=== PATIENT | male | born 1940 | race Caucasian/White ===

== ENCOUNTER 2016-12-02 13:08 | Inpatient (IN) | payer MEDICARE ==
[~2016-12-02 13:08] MED LIST: ASPI81 PO; TAB-TAB PO
[2016-12-02] MEDS ORDERED: SODIUM CHLORIDE 0.9% FLUSH 10 ML FLUSH IV FLUSH PRN (15:00)
[2016-12-02] MEDS ORDERED: MAGNESIUM HYDROXIDE SUSP 30 ML CUP PO PRN (15:00)
[2016-12-02] MEDS ORDERED: ONDANSETRON HCL 4 MG/2 ML VIAL IVP PRN (15:00)
[2016-12-02] MEDS ORDERED: TEMAZEPAM 15 MG CAP PO PRN (15:00)
[2016-12-02] MEDS ORDERED: NALOXONE HCL 0.4 MG/ML AMP IV PUSH PRN (15:00)
[2016-12-02] MEDS ORDERED: ACETAMINOPHEN 325 MG TAB PO PRN (15:00)
[2016-12-02 15:41] VITALS: BP 115/73; PULSE 112; RESP 16; TEMP 99.1; O2SAT 96
[2016-12-02 16:05] LABS: AUTOMATED NEUTROPHIL # 15.5 TH/MM3 (1.8-7.7); EOSINOPHIL % 0.2 % (0.0-4.0); HEMATOCRIT 35.6 % (39.0-51.0); LYMPH % 4.3 % (9.0-44.0); LYMPHOCYTE # 0.7 TH/MM3 (1.0-4.8); MEAN CELL VOLUME 100.3 FL (80.0-100.0); MEAN CORPUSCULAR HEMOGLOBIN 32.6 PG (27.0-34.0); MEAN CORPUSCULAR HGB CONC 32.5 % (32.0-36.0); MONO % 5.7 % (0.0-8.0); NEUT % 89.8 % (16.0-70.0); PLATELET COUNT 132 TH/MM3 (150-450); RED BLOOD COUNT 3.55 MIL/MM3 (4.50-5.90); RED CELL DISTRIBUTION WIDTH 18.6 % (11.6-17.2); WHITE BLOOD COUNT 17.2 TH/MM3 (4.0-11.0)
[2016-12-02 16:06] LABS: HEMO FLAGS AUTO DIFF
[2016-12-02] MEDS ORDERED: LATA.005%O EACH EYE (16:12)
[2016-12-02] MEDS ORDERED: DORZ2SOL7 EACH EYE (16:12)
[2016-12-02] MEDS ORDERED: ZOFR8TAB PO (16:12)
[2016-12-02] MEDS: SODIUM CHLOR 0.9% 1000 ML INJ 1,000 ML IV SCH ×2 (16:14→21:43)
[2016-12-02 16:27] LABS: ALKALINE PHOSPHATASE 111 U/L (45-117); ALT (GPT) 15 U/L (12-78); ANION GAP 6 MEQ/L (5-15); AST (GOT) 16 U/L (15-37); BICARBONATE 28.7 MEQ/L (21.0-32.0); BLOOD UREA NITROGEN 10 MG/DL (7-18); CHLORIDE 103 MEQ/L (98-107); GLOMERULAR FILTRATION RATE 129 ML/MIN (>89); SODIUM (NA) 138 MEQ/L (136-145); TOTAL BILIRUBIN ADULT 0.6 MG/DL (0.2-1.0)
[2016-12-02 16:29] LABS: POTASSIUM 2.8 MEQ/L (3.5-5.1)
[2016-12-02] MEDS: POTASSIUM CHLOR 40 MEQ PREMIX 100 ML IV SCH ×2 (17:02→21:41)
[2016-12-02 17:08] LABS: BANDS 21 % (0-6); EOSINOPHILS 1 % (0-4); NEUTROPHIL # MANUAL DIFF 14.8 TH/MM3 (1.8-7.7); POLYS (SEG NEUTROPHILS) 65 % (16-70); WBC DIFF SAMPLE 100
[2016-12-02 17:11] LABS: DOHLE BODIES PRESENT (NONE SEEN); PLATELET ESTIMATE SMEAR LOW (NORMAL); PLATELET MORPHOLOGY NORMAL (NORMAL); SCAN/DIFF FINAL DIFF MANUAL
[2016-12-02 18:27] LABS: BLOOD, URINE NEG (NEG); COMMENT (UR) CULT NOT INDICATED; CULTURE IF INDICATED CULT NOT INDICATED; GLUCOSE,URINE NEG (NEG); KETONE, URINE NEG (NEG); NITRITE,URINE NEG (NEG); URINE COLOR YELLOW (YELLW/STRAW)
--- NOTE | 2016-12-02 19:06 | MH ---
cc: JIM URBANO M.D. DATE OF ADMISSION 12/02/2016 ADMISSION DIAGNOSIS Dehydration, nausea, rectal cancer. HISTORY OF PRESENT ILLNESS This 76-year-old white male well-known to the undersigned physician was diagnosed with a rectal cancer and a cancer within the right ascending colon. The patient is currently undergoing chemotherapy at the [facility] for the cancer prior to radiation therapy and ultimately surgery. The patient last received chemotherapy 7 days prior to admission. Normally he would have a few days of diarrhea and after the chemotherapy, however, he has had persistent diarrhea and a markedly decreased appetite. The patient has consistently lost weight since his diagnosis in September 2016. However, over the last several days he has been unable to take in any solids as he is nauseated by any food at all. He has been able to drink some liquids but he has been taking in very little. His urine output has decreased. On the day of admission his contacted the undersigned physician and reported the patient was so weak that he could not get up out of bed. He was complaining of diffuse musculoskeletal discomfort. He had no actual emesis. He has had frequent watery diarrhea without any blood or mucus. The patient did take some Lomotil earlier today which has slowed down the diarrhea but he still having loose stools. He has had no definite fever or chills. He has an Likqha-I-Pymk in the right subclavian area but denies any pain associated with it. He has had no cough, sputum production, upper respiratory infection symptoms. He denies any gastroesophageal reflux disease symptoms. He has had a large amount of flatus. He has had lower abdominal cramping pain on and off. He denies any muscle cramps, any open sores or lesions. He denies any specific inflamed joints. PAST MEDICAL HISTORY Significant for: 1. Bilateral cataracts for which he underwent cataract removal with lens implants. 2. He has glaucoma. 3. Hemorrhoids. 4. He has a history of kidney stones. He has a large right kidney stone which is nonobstructive. He passed a kidney stone within the last 6 weeks from the left kidney. He has had no further pain. 5. He has osteoarthritis. 6. He has the above-mentioned rectal cancer. 7. He is status post an appendectomy at age 12. 8. He had retinal surgery for detached retina approximately 20 years ago. 9. He is status post tonsillectomy. 10. He had an Erhrze-Z-Vtbw placed earlier this year at the [facility]. 11. He has had the rectal biopsy in August 2016. Subsequently underwent the removal of the ascending colon mass at the [facility] by colonoscopy. MEDICATIONS The current medications are: 1. Tramadol 50 mg 1 tablet every 6 hours as needed for pain. 2. Xalatan eye drops 0.005% 1 drop in the affected eye in the evening. 3. Cosopt 22.3 / 6.8 mg per ml one drop in each eye twice daily. 4. He is taking Xeloda 500 milligrams two tablets twice a day. ALLERGIES HE HAS ALLERGIES TO MORPHINE WHICH CAUSED NAUSEA. FAMILY HISTORY Positive for father who in his 80s from myocardial infarction. Mother is in her 90s and she had cataracts, hemorrhoids, hypertension and a gastric ulcer. SOCIAL HISTORY He is . He is an admitted attorneys. He does not smoke. He lives with his . He consumes alcohol on a social basis. REVIEW OF SYSTEMS review of symptoms see history of present illness. PHYSICAL EXAMINATION VITAL SIGNS: Upon arrival to the hospital the patient's blood pressure was 115/73 with a heart rate 112, respirations 16, temperature 99.1 degrees Fahrenheit, oxygen saturation on room air is 96%. GENERAL: In general this is a thin elderly white male lying in bed appearing fatigued but in no respiratory distress. HEENT: The pupils are equal, round, reactive to light. Extraocular movements are intact. Sclerae anicteric. Conjunctive were pink. Bilateral lens implants in place. Mouth and throat reveal dry mucous membranes. No erythema, exudates. NECK: Supple without lymphadenopathy, JVD, bruits or thyromegaly. CARDIOVASCULAR: Regular rate and rhythm with sinus arrhythmia and frequent ectopy. the rate is tachycardic. LUNGS: Clear to auscultation without wheezes, rhonchi or rales. ABDOMEN: Soft with very active bowel sounds. No localized tenderness. No guarding or rebound. No masses. No HSM. No CVAT. GENITOURINARY: Deferred. RECTAL: Deferred. EXTREMITIES: Lower extremities reveal no appreciable edema. No calf tenderness. No Homans' sign. 2+ distal pulses. SKIN: Reveals some mild pallor but turgor is adequate. NEUROLOGIC: Examination is nonfocal. LABORATORY DATA The patient's comprehensive metabolic profile was significant for a potassium of 2.8. His calcium was 8.4 but this was not protein corrected. Total protein 5.6 with albumin 2.7. White blood cell count 17.2, hemoglobin 11.6, hematocrit 35.6, platelet count was the 132,000. MCV elevated at 100.3 White blood count differential showed 89.8 polys and 4.3 lymphocytes, 5.7 monocytes. Urinalysis is pending at this time. IMAGING Chest x-ray is pending at this time. IMPRESSION AND PLAN 1. This 76-year-old white male undergoing chemotherapy for colon cancer and rectal cancer has had progressive nausea with diminished appetite and persistent diarrhea. He has become extremely weak. He will be placed on observation .he will be given IV fluids for volume resuscitation. I have provided him with IV Zofran as needed. The patient states that the persistence of diarrhea is unusual with his present elevated white blood cell count and mild temperature elevation, I am concerned about possibility of an occult infection. I am going to proceed to follow up with the chest x-ray and urinalysis I have ordered a blood culture be performed from his Wrahxa-V-Itlg. His port site does not reveal any evidence of any infection. We will check stool studies for C difficile as well as for typical enteric pathogens. I have consulted Dr. Lemons who has seen the patient recently and will discuss further treatment options with him. We will hold the patient's oral chemotherapy today until I can discuss it better with Dr. Lemons. 2. Hypokalemia. The patient is receiving an IV supplement potassium. Will repeat potassium level in the morning and provide additional supplements as needed. In light of the hypokalemia we will place the patient on a cardiac nurse specialist. His heart rate is elevated but I suspect this is due to the dehydration. I have ordered a 12-lead EKG be done now to evaluate for the possibility of any other arrhythmia. 3. Glaucoma. The patient will continue with usual eye drops. 4. I have discussed the patient's condition with both he and his who is at the bedside. Both expressed understanding and agreement. MD FREDRICK Mederos/LAVELL /6:12 PM /6:28 PM
--- NOTE | 2016-12-02 19:26 | RADRPT ---
EXAM DATE/TIME: 12/02/2016 19:07 [place] COMPARISON: No previous studies available for comparison. INDICATIONS : Leukocytosis. Short of breath. MEDICAL HISTORY : Carcinoma, rectal. SURGICAL HISTORY : Infusaport. ENCOUNTER: Initial ACUITY: 1 day PAIN SCORE: 0/10 LOCATION: Bilateral chest FINDINGS: A single view of the chest demonstrates the lungs to be symmetrically aerated without evidence of mas s, infiltrate or effusion. The cardiomediastinal contours are unremarkable. Osseous structures are intact. There is a right internal jugular Dywrki-y-Eocs catheter with tip at atriocaval junction. CONCLUSION: No evidence of acute cardiopulmonary disease. Saad Haskins MD on December 02, 2016 at 19:24 Board Certified Radiologist. This report was verified electronically.
[2016-12-02 20:00] VITALS: BP 142/79; PULSE 86; RESP 17; TEMP 98.7; O2SAT 99
[2016-12-02] MEDS: SODIUM CHLORIDE 0.9% FLUSH 10 ML FLUSH IV FLUSH SCH (21:00)
[2016-12-02] MEDS: LATANOPROST 0.005% OPHT SOLN 2.5 ML BTL EACH EYE SCH (21:42)
[2016-12-02] MEDS: DORZOLAMIDE/TIMOLOL OPTH SOLN 10 ML BTL EACH EYE SCH (21:42)
[2016-12-02 22:06] VITALS: PULSE 76
--- NOTE | 2016-12-02 22:26 | MB ---
cc: LELAND ACUÑA DATE OF CONSULTATION 12/02/2016 REASON FOR CONSULTATION Adenocarcinoma of the rectum, colonic cancer, with abdominal pain, diarrhea and cramps on chemotherapy. PATIENT PROFILE The patient is a 76-year-old male who is . He was born in [place], [place]. He lives in [place] but also has a home in [place]. He has two children, both daughters. One lives in [place] and the other in [place]. 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 In the past he would have one drink per day but has had no alcohol recently. He stopped smoking 60 years ago and had smoked only for 2 years. HISTORY OF PRESENT ILLNESS The patient is a 76-year-old male with a longstanding history of rectal bleeding initially due to hemorrhoids. He recently developed increasing blood per rectum. He saw his primary care physician. He had a CT scan of the abdomen and pelvis which I believe was performed on 07/17/2016 and showed thickening of the distal rectum over 6 [address] He had a [address] scan of the thorax on 08/06/2016 without contrast showing no evidence of any metastatic disease. On 08/14/2016 he had a colonoscopy performed by Dr. Bautista. 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 In addition he had a large polyp in the ascending colon with focal high-grade dysplasia and at least intra mucosal adenocarcinoma. He had an MRI of the pelvis done locally showing thickening over a distance of 7 cm in the rectum. He was clinically felt to have T3 N0 M0 rectal cancer at that time. He had several local opinions. He then went to the [facility] and saw Dr. Aguilar who is a surgeon. He had a repeat MRI done at the [facility] and was felt to have a clinical T3 N1 M0 rectal cancer. In addition a repeat colonoscopy was done and he had a 7 cm mass in the ascending colon which was removed with mucosal resection and contained invasive adenocarcinoma. It is not clear to me what the clinical stage of the ascending colon cancer was. At that point he was evaluated at the [facility] for definitive treatment. The decision was made to treat him with oxaliplatin dose of 130 mg per meter squared day one, repeated every 21 days and capecitabine 1500 mg p.o. b.i.d. for 14 of 21 days. He would receive four months of neoadjuvant treatment. He would then go on to receive radiation therapy with I believe Xeloda and following this surgical resection of both cancers, specifically the rectal cancer and adenocarcinoma of the ascending colon. A week ago he received his third cycle of oxaliplatin and began Xeloda. He was also given Neulasta. During the past several days he developed abdominal pain, diarrhea, cramps and dehydration. He is now hospitalized for the above reason. LABORATORY DATA Laboratory studies include a CMP notable for potassium 2.8, BUN is 6, creatinine is 0.6, albumin is 2.7. Hemoglobin 11.6, white count 17,000, platelets 132,000. Total neutrophils are 14,000 but it must be remembered that he did receive Neulasta a week ago. He has had some slight puffiness of the fingertips. PAST SURGICAL HISTORY 1. Appendectomy. 2. Cataract surgery. 3. Retinal surgery for retinal detachment. 4. Tonsillectomy. 5. Sqqxcq-K-Eptg placement. 6. Colonoscopy locally by Dr. Bautista and repeat colonoscopy at the [facility] as described above. PAST MEDICAL HISTORY 1. Cataracts. 2. Glaucoma. 3. Hemorrhoids. 4. Right kidney stone and left renal stone causing colic. 5. Current diagnosis of adenocarcinoma of the rectum, clinical stage T3 N1 M0 and adenocarcinoma of the ascending colon clinical stage not clear. MEDICATIONS PRIOR TO ADMISSION 1. Aspirin 81 mg a day. 2. Timolol eye drops. 3. Xalatan eye drops. 4. Multivitamin. 5. Zofran. ALLERGIES ? MORPHINE DERIVATIVES. FAMILY HISTORY Mother age 93 of old age. Father age 85 of heart disease. REVIEW OF SYSTEMS Notable for abdominal pain, diarrhea, cramps, fatigue, weight loss, diminished appetite and some puffiness and slight tenderness of the fingertips. PHYSICAL EXAMINATION GENERAL: Physical examination reveals a slender gentleman. He is not acutely ill. VITAL SIGNS: Blood pressure 115/70, respiratory rate 16, pulse 110, temperature 99, O2 sat 96%. HEENT: Head is normocephalic. Sclerae and conjunctivae are normal. Oropharynx unremarkable. LYMPHATICS: There is no cervical, supraclavicular, axillary or inguinal adenopathy. HEART: Regular rhythm. LUNGS: Clear. ABDOMEN: Soft. No hepatosplenomegaly or masses. Bowel sounds slightly increased. EXTREMITIES: No edema. puffiness and edema of finger tips. MUSCULOSKELETAL: No bone pain. NEUROLOGIC: No weakness. SKIN: Examination of the skin there is some puffiness of the fingertips from the Xeloda with mild edema. RECTAL: slight watery stool. No tenderness. The rectal mass can be felt but it occupies only 20% of the circumferential volume of the lower rectum. ASSESSMENT The patient is a 76-year-old male. He has an adenocarcinoma of the rectum clinical stage T3 N1 M0. He has an adenocarcinoma of the ascending colon. It is not clear to me the stage. He received one week ago chemotherapy which includes Xeloda. I believe the Xeloda is responsible for the diarrhea and for the mild puffiness of the fingertips. RECOMMENDATIONS 1. IV fluids and correct potassium. 2. Holds Xeloda until he is better. 3. He can continue to receive chemotherapy but will require a dose reduction of the Xeloda. 4. In order to coordinate his care I contacted his medical oncologist, Dr. Vinicius Cameron at the [facility] and reviewed the situation with him. The patient wants to complete his chemotherapy locally and this will be done. I also contacted Dr. Rober Avila by phone this evening to coordinate care. Everything seems to be in order and the patient will receive IV fluids and his stool will be tested for C-difficile. I am hoping that in several days he will be able to return home. The plan will be to complete the chemotherapy administered over 3-4 months and then go on with radiation to the rectal lesion with concomitant Xeloda and then surgery. I have asked the patient to follow up with his surgeon at the [facility]. MD NERI Tavera/LAVELL /8:08 PM /9:58 PM LISA
[2016-12-03] VITALS: BP 107/67; PULSE 67; RESP 17; TEMP 99.2; O2SAT 96
[2016-12-03 00:40] LABS: C. DIFF EPI 027 PRESUMPTIVE NEGATIVE (NEGATIVE)
[2016-12-03 04:00] VITALS: BP 120/65; PULSE 64; RESP 18; TEMP 98.4; O2SAT 95
[2016-12-03 07:06] LABS: BICARBONATE 26.9 MEQ/L (21.0-32.0); POTASSIUM 3.1 MEQ/L (3.5-5.1)
--- NOTE | 2016-12-03 07:46 | EKG ---
Date Performed: 12/02/2016 Time Performed: 18:29:45 PTAGE: 76 years EKG: Sinus rhythm WITH OCCASIONAL SUPRAVENTRICULAR PREMATURE COMPLEXES MINIMAL ST DEPRESSION BORDERLINE ECG Since PREVIOUS TRACING , no significant change noted PREVIOUS TRACIN06/10/2011 14.11 DOCTOR: Yeimy Seals Interpretating Date/Time 12/03/2016 07:44:18
[2016-12-03 07:50] VITALS: BP 114/67; PULSE 73; RESP 20; TEMP 96.6; O2SAT 99
[2016-12-03] MEDS: DORZOLAMIDE/TIMOLOL OPTH SOLN 10 ML BTL EACH EYE SCH ×2 (08:18→19:43)
[2016-12-03] MEDS: SODIUM CHLORIDE 0.9% FLUSH 10 ML FLUSH IV FLUSH SCH ×2 (08:19→19:43)
--- NOTE | 2016-12-03 08:55 | HHI.PR ---
Subjective Remarks Nausea has improved. Patient had 2 soft to watery bowel movements overnight. Stool is positive for C. difficile. Heart rate is now back to normal. Urine output has improved. Denies any chest pain, shortness of breath or abdominal pain. Myalgias and arthralgias are improving. No muscle cramping. Did eat some dinner last night. Current Medications Medications (Trade) Dose Ordered Sig/Nora Route Start Time Stop Time Status Last Admin Sodium Chloride 1,000 ml @ 125 mls/hr Q8H IV 12/02/16 16:00 12/02/16 21:43 (NS Flush) 2 ml UNSCH PRN IV FLUSH 12/02/16 15:00 (NS Flush) 2 ml BID IV FLUSH 12/02/16 21:00 (Tylenol) 650 mg Q4H PRN PO 12/02/16 15:00 (Zofran Inj) 4 mg Q6H PRN IVP 12/02/16 15:00 (Restoril) 15 mg HS PRN PO 12/02/16 15:00 (Narcan Inj) 0.4 mg UNSCH PRN IV PUSH 12/02/16 15:00 (Milk Of Magnesia Liq) 30 ml Q12H PRN PO 12/02/16 15:00 (Flu (Quadrivalent) Vaccine Inj) 0.5 ml ONCE ONCE IM 12/03/16 10:00 12/03/16 10:01 (Cosopt 2-0.5% Opth Soln) 1 drop BID EACH EYE 12/02/16 21:00 12/03/16 08:18 (Xalatan 0.005% Opth Soln) 1 drop HS EACH EYE 12/02/16 21:00 12/02/16 21:42 Metronidazole 100 ml @ 100 mls/hr Q8H IV 12/03/16 09:00 Potassium Chloride 30 meq/ Sodium Chloride 115 ml @ 38.333 mls/ hr Q3H IV-CENTRAL 12/03/16 08:45 12/03/16 14:44 Objective Vital Signs Date Time Temp Pulse Resp B/P (MAP) Pulse Ox O2 Delivery O2 Flow Rate FiO2 12/03/16 04:00 98.4 64 18 120/65 (83) 95 12/03/16 00:00 99.2 67 17 107/67 (80) 96 12/02/16 22:06 76 12/02/16 20:00 98.7 86 17 142/79 (100) 99 12/02/16 15:41 99.1 112 16 115/73 (87) 96 I/O 12/02/16 12/02/16 12/02/16 12/03/16 12/03/16 12/03/16 07:00 15:00 23:00 07:00 15:00 23:00 Intake Total 240 ml Balance 240 ml Intake Oral 240 ml # Voids 1 # Bowel Movements 1 Cardiovascular examination revealed regular rate and rhythm Lungs are clear to auscultation Abdomen soft, nontender, nondistended with active bowel sounds, no masses Lower extremities reveal no appreciable edema or calf tenderness. Result Diagram: 12/02/16 1540 12/03/16 0550 Imaging Last 48 hours Impressions Chest X-Ray 12/02/16 0000 Signed Impressions: Service Date/Time: Wednesday, December 02, 2016 19:07 - CONCLUSION: No evidence of acute cardiopulmonary disease. Saad Haskins MD Other Results C. difficile by PCR: Positive Assessment and Plan Problem List: (1) C. difficile colitis ICD Codes: A04.7 - Enterocolitis due to Clostridium difficile Status: Acute Plan: The patient generalized weakness, diarrhea and elevated white blood cell count likely due to the C. difficile colitis. Have initiated metronidazole IV initially due to patient's nausea. Once he is taking by mouth well and nausea has resolved, we'll transition to oral metronidazole. Patient placed on contact isolation. (2) Dehydration ICD Codes: E86.0 - Dehydration Status: Acute Plan: Clinically improved with IV fluids. Continue with IV fluids and encourage by mouth intake. (3) Hypokalemia ICD Codes: E87.6 - Hypokalemia Status: Acute Plan: Improving. Will continue with IV potassium supplement until patient able to tolerate oral supplement. Continued follow-up potassium level. (4) Rectal cancer ICD Codes: C20 - Malignant neoplasm of rectum Status: Chronic Plan: I spoke with Dr. Lemons last evening. Xeloda will be held at this point. The patient is going to complete his course of chemotherapy with Dr. Lemons here in [place]. He will then return to the [facility] for surgical resection of the rectal and descending colon cancers. Will defer any further treatment of the cancer to Dr. Lemons. Rober Avila MD Dec 03, 2016 08:55
[2016-12-03] MEDS: metroNIDAZOLE 500 MG INJ 100 ML IV SCH ×2 (09:50→17:30)
[2016-12-03] MEDS ORDERED: INFLUENZA VIRUS VACCINE (QUADRIVALENT) 0.5 ML SYR IM ONE (10:00)
[2016-12-03] MEDS: SODIUM CHLOR 0.9% 1000 ML INJ 1,000 ML IV SCH ×2 (10:00→19:40)
[2016-12-03 11:30] VITALS: BP 109/59; PULSE 67; RESP 20; TEMP 96.9; O2SAT 96
[2016-12-03 15:50] VITALS: BP 113/65; PULSE 76; RESP 20; TEMP 98.2; O2SAT 96
[2016-12-03] MEDS: POTASSIUM CHLORIDE INJ 30 MEQ in SODIUM CHLORIDE 0.9% INJ 100 ML IV-CENTRAL SCH (16:00)
--- NOTE | 2016-12-03 19:25 | PD.ONC.PN ---
Subjective Subjective Remarks still with anorexia and mild abd discomfort Objective Data Date Time Temp Pulse Resp B/P (MAP) Pulse Ox O2 Delivery O2 Flow Rate FiO2 12/03/16 15:50 98.2 76 20 113/65 (81) 96 12/03/16 11:30 96.9 67 20 109/59 (76) 96 12/03/16 07:50 96.6 73 20 114/67 (83) 99 12/03/16 04:00 98.4 64 18 120/65 (83) 95 12/03/16 00:00 99.2 67 17 107/67 (80) 96 12/02/16 22:06 76 12/02/16 20:00 98.7 86 17 142/79 (100) 99 12/03/16 12/03/16 12/03/16 06:59 14:59 22:59 Intake Total 180 ml Balance 180 ml Result Diagram: 12/02/16 1540 12/03/16 0550 Laboratory Results Laboratory Tests Test 12/02/16 21:00 12/03/16 05:50 Stool C. difficile Toxin (PCR) POSITIVE Stl C. difficile Toxin Epiderm 027 PRESUMPTIVE NEGATIVE Blood Urea Nitrogen 9 MG/DL Creatinine 0.46 MG/DL Random Glucose 86 MG/DL Calcium Level 7.6 MG/DL Sodium Level 141 MEQ/L Potassium Level 3.1 MEQ/L Chloride Level 108 MEQ/L Carbon Dioxide Level 26.9 MEQ/L Anion Gap 6 MEQ/L Estimat Glomerular Filtration Rate 178 ML/MIN Magnesium Level 1.7 MG/DL Culture Results Microbiology Date/Time Source Procedure Growth Status 12/02/16 18:55 Blood Line Aerobic Blood Culture - Preliminary NO GROWTH IN 1 DAY Resulted 12/02/16 18:55 Blood Line Anaerobic Blood Culture - Preliminary NO GROWTH IN 1 DAY Resulted 12/02/16 21:00 Stool Stool - Final NO ENTERIC PATHOGENS DETECTED BY PCR... Complete Item Value Date Time Stool C. difficile Toxin (PCR) POSITIVE H 12/02/16 2100 Stl C. difficile Toxin Epiderm 027 PRESUMPTIVE NEGATIVE 12/02/16 2100 Administered Medications Medications (Trade) Dose Ordered Sig/Nora Route PRN Reason Start Time Stop Time Status Last Admin Dose Admin Sodium Chloride 1,000 ml @ 125 mls/hr Q8H IV 12/02/16 16:00 12/03/16 10:00 Dorzolamide/ Timolol (Cosopt 2-0.5% Opth Soln) 1 drop BID EACH EYE 12/02/16 21:00 12/03/16 08:18 Latanoprost (Xalatan 0.005% Opth Soln) 1 drop HS EACH EYE 12/02/16 21:00 12/02/16 21:42 Metronidazole 100 ml @ 100 mls/hr Q8H IV 12/03/16 09:00 12/03/16 17:30 Objective Remarks GENERAL: slender SKIN: Warm and dry. HEAD: Normocephalic. EYES: No scleral icterus. No injection or drainage. NECK: Supple, trachea midline. No JVD or lymphadenopathy. LYMPHATIC: No adenopathy. CARDIOVASCULAR: Regular rate, premature beats. RESPIRATORY: Breath sounds equal bilaterally. No accessory muscle use. GASTROINTESTINAL: Abdomen soft, no tenderness EXTREMITIES: No cyanosis, or edema. MUSCULOSKELETAL: early muscle wasting NEUROLOGICAL: No obvious focal deficit. Awake, alert, and oriented x3. PSYCHIATRIC: discouraged. Assessment/Plan Assessment 1: patient + for C Dif which explain diarrhea occurring at only 6-7 days of Xeloda. This bring up two question- best treatment for acute event and how to pursue chemo in two week and prevent recurrence. I have spoken with Dr. Avila and will ask for ID consult. 2: colon and rectal cancer. continue to hold Xeloda and hopefully next treatment will be in about two weeks if he is doing well. 3: Discussed with patient and . Bryant Lemons MD Dec 03, 2016 19:25
[2016-12-03] MEDS: LATANOPROST 0.005% OPHT SOLN 2.5 ML BTL EACH EYE SCH (19:40)
[2016-12-03 20:00] VITALS: BP 116/73; PULSE 79; RESP 20; TEMP 99; O2SAT 96
[2016-12-04] VITALS: BP 123/72; PULSE 88; RESP 20; TEMP 98.9; O2SAT 96
[2016-12-04] MEDS: SODIUM CHLOR 0.9% 1000 ML INJ 1,000 ML IV SCH ×3 (00:49→21:24)
[2016-12-04] MEDS: metroNIDAZOLE 500 MG INJ 100 ML IV SCH (00:50)
[2016-12-04] MEDS: POTASSIUM CHLORIDE INJ 30 MEQ in SODIUM CHLORIDE 0.9% INJ 100 ML IV-CENTRAL SCH (03:51)
[2016-12-04 04:00] VITALS: BP 110/61; PULSE 97; RESP 20; TEMP 97.2; O2SAT 96
[2016-12-04 06:09] LABS: AUTOMATED NEUTROPHIL # 7.9 TH/MM3 (1.8-7.7); BASOPHIL % 0.1 % (0.0-2.0); EOSINOPHIL % 0.2 % (0.0-4.0); HEMATOCRIT 30.2 % (39.0-51.0); LYMPH % 10.1 % (9.0-44.0); MEAN CELL VOLUME 101.3 FL (80.0-100.0); MEAN CORPUSCULAR HGB CONC 33.5 % (32.0-36.0); MONO % 9.1 % (0.0-8.0); NEUT % 80.5 % (16.0-70.0); PLATELET COUNT 122 TH/MM3 (150-450); RED BLOOD COUNT 2.98 MIL/MM3 (4.50-5.90); RED CELL DISTRIBUTION WIDTH 18.6 % (11.6-17.2); WHITE BLOOD COUNT 9.8 TH/MM3 (4.0-11.0)
[2016-12-04 06:21] LABS: BICARBONATE 25.5 MEQ/L (21.0-32.0); POTASSIUM 3.6 MEQ/L (3.5-5.1)
[2016-12-04 06:38] LABS: HEMO FLAGS AUTO DIFF
[2016-12-04 08:00] VITALS: BP 112/62; PULSE 75; RESP 18; TEMP 98.1; O2SAT 97
[2016-12-04] MEDS ORDERED: metroNIDAZOLE 500 MG TAB PO SCH (08:00)
[2016-12-04] MEDS: DORZOLAMIDE/TIMOLOL OPTH SOLN 10 ML BTL EACH EYE SCH ×2 (09:00→21:23)
[2016-12-04] MEDS: SODIUM CHLORIDE 0.9% FLUSH 10 ML FLUSH IV FLUSH SCH ×2 (09:00→21:00)
[2016-12-04] MEDS: POTASSIUM CHLORIDE 10 MEQ CAP PO SCH ×2 (10:17→21:20)
--- NOTE | 2016-12-04 11:19 | PD.ID.CON ---
History of Present Illness Service Infectious disease Consult Requested By Dr. Lemons Reason for Consult Evaluation and management of C. difficile in a patient with rectal cancer undergoing chemotherapy and radiation therapy. Primary Care Physician Unknown Diagnoses: History of Present Illness Mr. Seaman is a 76-year-old male with a long-standing history of rectal bleeding initially due to hemorrhoids and subsequently July [address] scan which showed thickening of the distal rectum over 6 cm. He had a CT scan of the thorax did not show any evidence of metastatic disease. In August 2016 patient underwent a colonoscopy performed by Dr. Bautista. 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 In addition he had a large polyp in the ascending colon which was thought to be an intramucosal adenocarcinoma. He had an MRI of the pelvis done locally which showed thickening over distance of 7 cm in the rectum. He is staged as T3, N0, M0 rectal cancer at this time. He has seen physicians at the [facility] as well. Patient also had a 7 cm mass in the ascending colon which was removed with mucosal resection and was an invasive adenocarcinoma by pathology. Patient has been undergoing chemotherapy as well as radiation therapy. Patient reports being on XELODA along with other medications. Patient is also scheduled to have radiation therapy along with chemotherapy. One week prior to admission patient underwent his third cycle of oxaliplatin and began Xeloda. Before he started the session of chemotherapy patient had an episode of herpes zoster and was placed on high-dose acyclovir. Patient subsequently started developing abdominal pain, diarrhea, cramps and dehydration and was hospitalized for the same. Patient made criteria for sepsis on admission which included elevated white count of 17.2, tachycardia at 110 and source of infection being diarrhea now diagnosed as C. difficile. Infectious disease is consulted for evaluation and management of C. difficile as well as recommendation as to how to best control/ prevent recurrences of C. difficile especially given the fact that patient could have mucositis from other reasons. Review of Systems Constitutional: DENIES: Diaphoretic episodes, Fatigue, Fever, Weight gain, Weight loss, Chills, Dizziness, Change in appetite, Night Sweats Endocrine: DENIES: Heat/cold intolerance, Polydipsia, Polyuria, Polyphagia Eyes: DENIES: Blurred vision, Diplopia, Eye inflammation, Eye pain, Vision loss , Photosensitivity, Double Vision Ears, nose, mouth, throat: DENIES: Tinnitus, Hearing loss, Vertigo, Nasal discharge, Oral lesions, Throat pain, Hoarseness, Ear Pain, Running Nose, Epistaxis, Sinus Pain, Toothache, Odynophagia Respiratory: DENIES: Apneas, Cough, Snoring, Wheezing, Hemoptysis, Sputum production, Shortness of breath Cardiovascular: DENIES: Chest pain, Palpitations, Syncope, Dyspnea on Exertion , PND, Lower Extremity Edema, Orthopnea, Claudication Gastrointestinal: COMPLAINS OF: Abdominal pain, Diarrhea, DENIES: Black stools , Bloody stools, Constipation, Nausea, Vomiting, Difficulty Swallowing, Anorexia Genitourinary: DENIES: Sexual dysfunction, Urinary frequency, Urinary incontinence, Urgency, Hematuria, Dysuria, Nocturia, Penile Discharge, Testicular Pain, Testicular Swelling Musculoskeletal: DENIES: Joint pain, Muscle aches, Stiffness, Joint Swelling, Back pain, Neck pain Integumentary: DENIES: Abnormal pigmentation, Nail changes, Pruritus, Rash Hematologic/lymphatic: DENIES: Bruising, Lymphadenopathy Immunologic/allergic: DENIES: Eczema, Urticaria Neurologic: DENIES: Abnormal gait, Headache, Localized weakness, Paresthesias, Seizures, Speech Problems, Tremor, Poor Balance Psychiatric: DENIES: Anxiety, Confusion, Mood changes, Depression, Hallucinations, Agitation, Suicidal Ideation, Homicidal Ideation, Delusions Except as stated in HPI: all other systems reviewed are Neg Past Family Social History Allergies: Coded Allergies: No Known Allergies (Unverified , 06/10/11) Past Medical History 1. Appendectomy. 2. Cataract surgery. 3. Retinal surgery for retinal detachment. 4. Tonsillectomy. 5. [id number]-[id number] placement. 6. Colonoscopy locally by Dr. Bautista and repeat colonoscopy at the [facility] as described above. Past Surgical History 1. Cataracts. 2. Glaucoma. 3. Hemorrhoids. 4. Right kidney stone and left renal stone causing colic. 5. Current diagnosis of adenocarcinoma of the rectum, clinical stage T3 N1 M0 and adenocarcinoma of the ascending colon clinical stage not clear. Reported Medications Reported Meds & Active Scripts Active Reported Zofran (Ondansetron HCl) 8 Mg Tab 8 Mg PO TID Cosopt Opth Drops (Dorzolamide-Timolol Opth Drops) 22.3-6.8 Mg/Ml Soln 1 Drop EACH EYE BID Xalatan Opth Drops (Latanoprost) 0.005% Drops 1 Drop EACH EYE HS Aspirin 81 Mg Tab 81 Mg PO DAILY Multivitamin (Multivitamins) 1 Tab Tab 1 Tab PO DAILY Active Ordered Medications Current Medications Medications (Trade) Dose Ordered Sig/Nora Route Start Time Stop Time Status Last Admin (NS Flush) 2 ml UNSCH PRN IV FLUSH 12/02/16 15:00 (NS Flush) 2 ml BID IV FLUSH 12/02/16 21:00 (Tylenol) 650 mg Q4H PRN PO 12/02/16 15:00 12/04/16 00:50 (Zofran Inj) 4 mg Q6H PRN IVP 12/02/16 15:00 (Restoril) 15 mg HS PRN PO 12/02/16 15:00 (Narcan Inj) 0.4 mg UNSCH PRN IV PUSH 12/02/16 15:00 (Milk Of Magnesia Liq) 30 ml Q12H PRN PO 12/02/16 15:00 (Cosopt 2-0.5% Opth Soln) 1 drop BID EACH EYE 12/02/16 21:00 12/04/16 09:00 (Xalatan 0.005% Opth Soln) 1 drop HS EACH EYE 12/02/16 21:00 12/03/16 19:40 (KCl) 10 meq BID PO 12/04/16 09:00 12/04/16 10:17 Sodium Chloride 1,000 ml @ 70 mls/hr [id number] IV 12/04/16 07:00 12/04/16 10:18 (Dificid) 200 mg BID PO 12/04/16 13:00 12/14/16 12:59 12/04/16 14:37 (VANCOMYCIN for oral use only) 125 mg QID PO 12/04/16 13:00 12/04/16 18:45 ([place] 5-325 Mg) 1 tab Q4H PRN PO 12/04/16 14:00 12/04/16 14:38 (Megace Liq) 200 mg BID PO 12/04/16 15:30 Family History Mother age 93 of old age. Father age 85 of heart disease. Social History He lives in [place] but also has a home in [place]. He has two children, both daughters. One lives in [place] and the other in [place]. 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 In the past he would have one drink per day but has had no alcohol recently. He stopped smoking 60 years ago and had smoked only for 2 years. Physical Exam Vital Signs Vital Signs Date Time Temp Pulse Resp B/P (MAP) Pulse Ox O2 Delivery O2 Flow Rate FiO2 12/04/16 08:00 98.1 75 18 112/62 (79) 97 12/04/16 04:00 97.2 97 20 110/61 (77) 96 12/04/16 00:00 98.9 88 20 123/72 (89) 96 12/03/16 20:00 99.0 79 20 116/73 (87) 96 12/03/16 15:50 98.2 76 20 113/65 (81) 96 12/03/16 11:30 96.9 67 20 109/59 (76) 96 Physical Exam GENERAL: This is a well-nourished, well-developed patient, in no apparent distress. SKIN: No rashes, ecchymoses or lesions. Cool and dry. HEAD: Atraumatic. Normocephalic. No temporal or scalp tenderness. EYES: Pupils equal round and reactive. Extraocular motions intact. No scleral icterus. No injection or drainage. ENT: Nose without bleeding, purulent drainage or septal hematoma. Throat without erythema, tonsillar hypertrophy or exudate. Uvula midline. Airway patent. NECK: Trachea midline. No JVD or lymphadenopathy. Supple, nontender, no meningeal signs. CARDIOVASCULAR: Regular rate and rhythm without murmurs, gallops, or rubs. RESPIRATORY: Clear to auscultation. Breath sounds equal bilaterally. No wheezes , rales, or rhonchi. GASTROINTESTINAL: Abdomen soft, non-tender, nondistended. No hepato-splenomegaly , or palpable masses. No guarding. MUSCULOSKELETAL: Extremities without clubbing, cyanosis, or edema. No joint tenderness, effusion, or edema noted. No calf tenderness. Negative Homans sign bilaterally. NEUROLOGICAL: Awake and alert. Cranial nerves II through XII intact. Motor and sensory grossly within normal limits. Five out of 5 muscle strength in all muscle groups. Normal speech. Psych cooperative IV line sites with no e.o infection PORT site with no e.o infection Laboratory Laboratory Tests Test 12/04/16 05:35 White Blood Count 9.8 Red Blood Count 2.98 Hemoglobin 10.1 Hematocrit 30.2 Mean Corpuscular Volume 101.3 Mean Corpuscular Hemoglobin 34.0 Mean Corpuscular Hemoglobin Concent 33.5 Red Cell Distribution Width 18.6 Platelet Count 122 Mean Platelet Volume 9.3 Neutrophils (%) (Auto) 80.5 Lymphocytes (%) (Auto) 10.1 Monocytes (%) (Auto) 9.1 Eosinophils (%) (Auto) 0.2 Basophils (%) (Auto) 0.1 Neutrophils # (Auto) 7.9 Lymphocytes # (Auto) 1.0 Monocytes # (Auto) 0.9 Eosinophils # (Auto) 0.0 Basophils # (Auto) 0.0 CBC Comment AUTO DIFF Blood Urea Nitrogen 7 Creatinine 0.41 Random Glucose 96 Calcium Level 7.9 Sodium Level 143 Potassium Level 3.6 Chloride Level 111 Carbon Dioxide Level 25.5 Anion Gap 7 Estimat Glomerular Filtration Rate 204 Date/Time Source Procedure Growth Status 12/02/16 18:55 Blood Line Aerobic Blood Culture - Preliminary NO GROWTH IN 2 DAYS Resulted 12/02/16 18:55 Blood Line Anaerobic Blood Culture - Preliminary NO GROWTH IN 2 DAYS Resulted 12/02/16 21:00 Stool Stool - Final NO ENTERIC PATHOGENS DETECTED BY PCR... Complete Result Diagram: 12/04/16 0535 12/04/16 0535 Imaging Last Impressions Chest X-Ray 12/02/16 0000 Signed Impressions: Service Date/Time: Friday, December 02, 2016 19:07 - CONCLUSION: No evidence of acute cardiopulmonary disease. Saad Haskins MD Assessment and Plan Assessment and Plan Sepsis present on admission C. difficile positive diarrhea with colitis Hypoalbuminemia Rectal cancer Ascending colon cancer Recommendations Discontinue Flagyl Start oral vancomycin 125 mg by mouth every 6 hours Start Dificid as patient is on concomitant chemotherapy shortly. Edy sanchesw Case d.w Pt and spouse in room. Counseled extensively how to handle food, clean bathrooms and clothes etc. Not a good candidate for fecal transplant. Discussed options: 1. Treat acute episodes and evaluate if recurrent diarrhea for cdiff and treat accordingly. 2. Treat and suppress there after. myronw him resistance issues and how cassandra can be modified by Vancomycin which is an antibiotic as well. covering for me this weekend. Discussed Condition With Patient wishes to have aggressive goals of care. Full code. Physician Attestation I reviewed and verified patients medication listed in [facility]. Would like to add he was on Acyclovir oral in addition to chemotherapy agents which could contribute to Cdiff. Angelina Muir MD Dec 04, 2016 11:19
[2016-12-04 11:38] LABS: BANDS 17 % (0-6); METAMYELOCYTES 1 % (0-1); NEUTROPHIL # MANUAL DIFF 8.6 TH/MM3 (1.8-7.7); POLYS (SEG NEUTROPHILS) 70 % (16-70); WBC DIFF SAMPLE 100
[2016-12-04 11:39] LABS: PLATELET ESTIMATE SMEAR LOW (NORMAL); PLATELET MORPHOLOGY NORMAL (NORMAL); SCAN/DIFF FINAL DIFF MANUAL
[2016-12-04 12:45] VITALS: BP 119/73; PULSE 87; RESP 18; TEMP 98.3; O2SAT 95
--- NOTE | 2016-12-04 12:47 | PD.ONC.PN ---
Subjective Subjective Remarks Afebrile overnight. patient resting in bed in nad. at bedside. States he has had multiple episodes of diarrhea today. he gets some cramping and sharp pain in his abdomen at "random" intervals. The pain usually starts to dissipate after he has had a bowel movement. He states he has not wanted to try anything for the pain yet, as the pain seems to improve after bowel movement and usually only lasts for about 30 minutes. Objective Data Date Time Temp Pulse Resp B/P (MAP) Pulse Ox O2 Delivery O2 Flow Rate FiO2 12/04/16 08:00 98.1 75 18 112/62 (79) 97 12/04/16 04:00 97.2 97 20 110/61 (77) 96 12/04/16 00:00 98.9 88 20 123/72 (89) 96 12/03/16 20:00 99.0 79 20 116/73 (87) 96 12/03/16 15:50 98.2 76 20 113/65 (81) 96 12/04/16 12/04/16 12/04/16 07:00 15:00 23:00 Intake Total 220 ml 1000 ml Output Total 300 ml Balance -80 ml 1000 ml Result Diagram: 12/04/16 0535 12/04/16 0535 Laboratory Results Laboratory Tests Test 12/04/16 05:35 White Blood Count 9.8 TH/MM3 Red Blood Count 2.98 MIL/MM3 Hemoglobin 10.1 GM/DL Hematocrit 30.2 % Mean Corpuscular Volume 101.3 FL Mean Corpuscular Hemoglobin 34.0 PG Mean Corpuscular Hemoglobin Concent 33.5 % Red Cell Distribution Width 18.6 % Platelet Count 122 TH/MM3 Mean Platelet Volume 9.3 FL Neutrophils (%) (Auto) 80.5 % Lymphocytes (%) (Auto) 10.1 % Monocytes (%) (Auto) 9.1 % Eosinophils (%) (Auto) 0.2 % Basophils (%) (Auto) 0.1 % Neutrophils # (Auto) 7.9 TH/MM3 Lymphocytes # (Auto) 1.0 TH/MM3 Monocytes # (Auto) 0.9 TH/MM3 Eosinophils # (Auto) 0.0 TH/MM3 Basophils # (Auto) 0.0 TH/MM3 CBC Comment AUTO DIFF Differential Total Cells Counted 100 Neutrophils % (Manual) 70 % Band Neutrophils % 17 % Lymphocytes % 5 % Monocytes % 7 % Neutrophils # (Manual) 8.6 TH/MM3 Metamyelocytes 1 % Differential Comment FINAL DIFF MANUAL Platelet Estimate LOW Platelet Morphology Comment NORMAL Blood Urea Nitrogen 7 MG/DL Creatinine 0.41 MG/DL Random Glucose 96 MG/DL Calcium Level 7.9 MG/DL Sodium Level 143 MEQ/L Potassium Level 3.6 MEQ/L Chloride Level 111 MEQ/L Carbon Dioxide Level 25.5 MEQ/L Anion Gap 7 MEQ/L Estimat Glomerular Filtration Rate 204 ML/MIN Culture Results Microbiology Date/Time Source Procedure Growth Status 12/02/16 18:55 Blood Line Aerobic Blood Culture - Preliminary NO GROWTH IN 2 DAYS Resulted 12/02/16 18:55 Blood Line Anaerobic Blood Culture - Preliminary NO GROWTH IN 2 DAYS Resulted 12/02/16 21:00 Stool Stool - Final NO ENTERIC PATHOGENS DETECTED BY PCR... Complete Administered Medications Medications (Trade) Dose Ordered Sig/Nora Route PRN Reason Start Time Stop Time Status Last Admin Dose Admin Acetaminophen (Tylenol) 650 mg Q4H PRN PO TEMP > 100.5 12/02/16 15:00 12/04/16 00:50 Dorzolamide/ Timolol (Cosopt 2-0.5% Opth Soln) 1 drop BID EACH EYE 12/02/16 21:00 12/04/16 09:00 Latanoprost (Xalatan 0.005% Opth Soln) 1 drop HS EACH EYE 12/02/16 21:00 12/03/16 19:40 Potassium Chloride (KCl) 10 meq BID PO 12/04/16 09:00 12/04/16 10:17 Sodium Chloride 1,000 ml @ 70 mls/hr [id number] IV 12/04/16 07:00 12/04/16 10:18 Objective Remarks GENERAL: Elderly male upright in bed in nad. SKIN: Warm and dry. HEAD: Normocephalic. EYES: No injection or drainage. NECK: Supple, trachea midline. CARDIOVASCULAR: Regular rate and rhythm. RESPIRATORY: Breath sounds equal bilaterally. No accessory muscle use. GASTROINTESTINAL: Abdomen soft, non-tender, nondistended. EXTREMITIES: No cyanosis NEUROLOGICAL: No obvious focal deficit. Awake, alert, and oriented x3. Assessment/Plan Assessment 76y/o male with rectal adenocarcinoma, admitted with diarrhea. Plan 1. Abdominal pain/cramping: this seems to be related to the diarrhea. I discussed with patient that I would add PRN Lortab. However, I think the pain will resolve as the diarrhea resolves and the patient seems reluctant to use any type of pain medication, even tylenol 2. continue to hold xeloda 3. appreciate ID recommendations from Dr. Muir. d/w patient, , dr. Vesta Hamilton,Yue SMITH Dec 04, 2016 12:47
[2016-12-04] MEDS: FIDAXOMICIN 200 MG TAB PO SCH ×2 (14:37→21:22)
[2016-12-04] MEDS: VANCOMYCIN 500 MG VIAL (FOR ORAL USE ONLY) PO SCH ×3 (14:37→21:22)
[2016-12-04] MEDS: ACETAMINOPHEN/HYDROcodone 325 MG/5 MG TAB PO PRN (14:38)
--- NOTE | 2016-12-04 14:42 | HHI.PR ---
Subjective Remarks Still having frequent diarrhea especially after eating. Appetite is fair. He states he's forcing himself to eat. Having on and off abdominal discomfort which seems to be related to cramping. Has remained afebrile. Out of bed to the bathroom independently. No nausea or vomiting. Current Medications Medications (Trade) Dose Ordered Sig/Nora Route Start Time Stop Time Status Last Admin (NS Flush) 2 ml UNSCH PRN IV FLUSH 12/02/16 15:00 (NS Flush) 2 ml BID IV FLUSH 12/02/16 21:00 (Tylenol) 650 mg Q4H PRN PO 12/02/16 15:00 12/04/16 00:50 (Zofran Inj) 4 mg Q6H PRN IVP 12/02/16 15:00 (Restoril) 15 mg HS PRN PO 12/02/16 15:00 (Narcan Inj) 0.4 mg UNSCH PRN IV PUSH 12/02/16 15:00 (Milk Of [place] Liq) 30 ml Q12H PRN PO 12/02/16 15:00 (Cosopt 2-0.5% Opth Soln) 1 drop BID EACH EYE 12/02/16 21:00 12/04/16 09:00 (Xalatan 0.005% Opth Soln) 1 drop HS EACH EYE 12/02/16 21:00 12/03/16 19:40 (KCl) 10 meq BID PO 12/04/16 09:00 12/04/16 10:17 Sodium Chloride 1,000 ml @ 70 mls/hr [id number] IV 12/04/16 07:00 12/04/16 10:18 (Dificid) 200 mg BID PO 12/04/16 13:00 12/14/16 12:59 (VANCOMYCIN for oral use only) 125 mg QID PO 12/04/16 13:00 ([place] 5-325 Mg) 1 tab Q4H PRN PO 12/04/16 14:00 Objective Vital Signs Date Time Temp Pulse Resp B/P (MAP) Pulse Ox O2 Delivery O2 Flow Rate FiO2 12/04/16 12:45 98.3 87 18 119/73 (88) 95 12/04/16 08:00 98.1 75 18 112/62 (79) 97 12/04/16 04:00 97.2 97 20 110/61 (77) 96 12/04/16 00:00 98.9 88 20 123/72 (89) 96 12/03/16 20:00 99.0 79 20 116/73 (87) 96 12/03/16 15:50 98.2 76 20 113/65 (81) 96 I/O 12/03/16 12/03/16 12/03/16 12/04/16 12/04/16 12/04/16 07:00 15:00 23:00 07:00 15:00 23:00 Intake Total 480 ml 220 ml 1000 ml Output Total 300 ml 300 ml Balance 180 ml -80 ml 1000 ml Intake Oral 480 ml 220 ml IV Total 1000 ml Output Urine Total 300 ml 300 ml # Voids 2 # Bowel Movements 2 Cardiovascular examination revealed regular rate and rhythm Lungs clear to auscultation Abdomen is soft, flat, mildly tender diffusely, active bowel sounds, no guarding or rebound Result Diagram: 12/04/16 0535 12/04/16 0535 Assessment and Plan Problem List: (1) C. difficile colitis ICD Codes: A04.7 - Enterocolitis due to Clostridium difficile Status: Acute Plan: Appreciate infectious disease consultation. Patient beginning oral vancomycin. We'll continue with IV fluids. Appetite remains poor. I discussed with Dr. Lemons beginning patient on appetite stimulant. Will begin Megace. Dr. Lemons also suggested possible consideration for testosterone supplementation as an anabolic stimulant. Will check testosterone level. (2) Dehydration ICD Codes: E86.0 - Dehydration Status: Acute Plan: Clinically improved with IV fluids. Continue with IV fluids and encourage by mouth intake. (3) Hypokalemia ICD Codes: E87.6 - Hypokalemia Status: Resolved Plan: Continue to follow-up potassium level. (4) Rectal cancer ICD Codes: C20 - Malignant neoplasm of rectum Status: Chronic Plan: Xeloda on hold. Further treatment per oncology. Discussed Condition With Patient's at bedside. I reviewed the patient's condition and plan a care with both the patient and his . Questions answered. Rober Avila MD Dec 04, 2016 14:42
[2016-12-04] MEDS: MEGESTROL ACETATE SUSP 400 MG/10 ML CUP PO SCH ×2 (15:30→21:22)
[2016-12-04 16:00] VITALS: BP 141/68; PULSE 75; RESP 18; TEMP 99; O2SAT 96
[2016-12-04 20:00] VITALS: BP 133/67; PULSE 83; RESP 18; TEMP 98.1; O2SAT 96
[2016-12-04] MEDS: LATANOPROST 0.005% OPHT SOLN 2.5 ML BTL EACH EYE SCH (21:23)
[2016-12-05] VITALS: BP 125/71; PULSE 72; RESP 17; TEMP 99.1; O2SAT 96
[2016-12-05 04:00] VITALS: BP 119/71; PULSE 79; RESP 17; TEMP 96.9; O2SAT 97
[2016-12-05 07:00] LABS: AUTOMATED NEUTROPHIL # 7.1 TH/MM3 (1.8-7.7); BASOPHIL % 0.2 % (0.0-2.0); HEMATOCRIT 31.2 % (39.0-51.0); HEMO FLAGS DIFF FINAL; LYMPH % 6.3 % (9.0-44.0); LYMPHOCYTE # 0.5 TH/MM3 (1.0-4.8); MEAN CELL VOLUME 102.2 FL (80.0-100.0); MEAN CORPUSCULAR HEMOGLOBIN 34.3 PG (27.0-34.0); MEAN CORPUSCULAR HGB CONC 33.5 % (32.0-36.0); MONO % 8.9 % (0.0-8.0); NEUT % 84.6 % (16.0-70.0); PLATELET COUNT 138 TH/MM3 (150-450); RED BLOOD COUNT 3.06 MIL/MM3 (4.50-5.90); RED CELL DISTRIBUTION WIDTH 19.5 % (11.6-17.2); WHITE BLOOD COUNT 8.4 TH/MM3 (4.0-11.0)
[2016-12-05 07:33] LABS: BICARBONATE 22.5 MEQ/L (21.0-32.0)
[2016-12-05 07:39] LABS: POTASSIUM 2.9 MEQ/L (3.5-5.1)
[2016-12-05 08:00] VITALS: BP 139/76; PULSE 78; RESP 14; TEMP 98.4; O2SAT 98
[2016-12-05] MEDS: SODIUM CHLORIDE 0.9% FLUSH 10 ML FLUSH IV FLUSH SCH ×2 (09:00→21:00)
[2016-12-05] MEDS: POTASSIUM CHLORIDE 10 MEQ CAP PO SCH ×2 (10:04→21:04)
[2016-12-05] MEDS: FIDAXOMICIN 200 MG TAB PO SCH ×2 (10:05→21:03)
[2016-12-05] MEDS: VANCOMYCIN 500 MG VIAL (FOR ORAL USE ONLY) PO SCH ×4 (10:05→21:02)
[2016-12-05] MEDS: DORZOLAMIDE/TIMOLOL OPTH SOLN 10 ML BTL EACH EYE SCH ×2 (10:19→21:05)
[2016-12-05] MEDS: MEGESTROL ACETATE SUSP 400 MG/10 ML CUP PO SCH ×2 (10:22→21:00)
[2016-12-05] MEDS ORDERED: POTASSIUM CHLORIDE 10 MEQ CAP PO SCH (11:30)
--- NOTE | 2016-12-05 11:44 | HHI.PR ---
Subjective Remarks Diarrhea is slightly improved. There is a decrease in frequency but still watery stools. Reports abdominal cramping pain prior to and after bowel movements. Appetite is better. Denies any nausea or vomiting. No chest pain, shortness of breath, muscle cramps, lightheadedness or dizziness. Ambulating independently to bathroom. Current Medications Medications (Trade) Dose Ordered Sig/Nora Route Start Time Stop Time Status Last Admin (NS Flush) 2 ml UNSCH PRN IV FLUSH 12/02/16 15:00 (NS Flush) 2 ml BID IV FLUSH 12/02/16 21:00 (Tylenol) 650 mg Q4H PRN PO 12/02/16 15:00 12/04/16 00:50 (Zofran Inj) 4 mg Q6H PRN IVP 12/02/16 15:00 (Restoril) 15 mg HS PRN PO 12/02/16 15:00 (Narcan Inj) 0.4 mg UNSCH PRN IV PUSH 12/02/16 15:00 (Milk Of Magnesia Liq) 30 ml Q12H PRN PO 12/02/16 15:00 (Cosopt 2-0.5% Opth Soln) 1 drop BID EACH EYE 12/02/16 21:00 12/05/16 10:19 (Xalatan 0.005% Opth Soln) 1 drop HS EACH EYE 12/02/16 21:00 12/04/16 21:23 (KCl) 10 meq BID PO 12/04/16 09:00 12/05/16 10:04 Sodium Chloride 1,000 ml @ 70 mls/hr [id number] IV 12/04/16 07:00 12/04/16 21:24 (Dificid) 200 mg BID PO 12/04/16 13:00 12/14/16 12:59 12/05/16 10:05 (VANCOMYCIN for oral use only) 125 mg QID PO 12/04/16 13:00 12/05/16 10:05 ([place] 5-325 Mg) 1 tab Q4H PRN PO 12/04/16 14:00 12/04/16 14:38 (Megace Liq) 200 mg BID PO 12/04/16 15:30 12/05/16 10:22 Potassium Chloride 100 ml @ 25 mls/hr Q4H IV 12/05/16 11:30 12/05/16 19:29 UNV (KCl) 10 meq BID PO 12/05/16 11:30 Objective Vital Signs Date Time Temp Pulse Resp B/P (MAP) Pulse Ox O2 Delivery O2 Flow Rate FiO2 12/05/16 08:00 98.4 78 14 139/76 (97) 98 12/05/16 04:00 96.9 79 17 119/71 (87) 97 12/05/16 00:00 99.1 72 17 125/71 (89) 96 12/04/16 20:00 98.1 83 18 133/67 (89) 96 12/04/16 16:00 99.0 75 18 141/68 (92) 96 12/04/16 12:45 98.3 87 18 119/73 (88) 95 I/O 12/04/16 12/04/16 12/04/16 12/05/16 12/05/16 12/05/16 06:59 14:59 22:59 06:59 14:59 22:59 Intake Total 220 ml 1000 ml 1040 ml 480 ml Output Total 300 ml Balance -80 ml 1000 ml 1040 ml 480 ml Intake Oral 220 ml 1040 ml 480 ml IV Total 1000 ml Output Urine Total 300 ml # Voids 5 3 # Bowel Movements 5 2 Abdomen: Soft, nontender, nondistended with bowel sounds present, no masses palpable, no HSM Lower extremities reveal no peripheral edema, calf tenderness or Homans sign Result Diagram: 12/05/16 0609 12/05/16 0609 Assessment and Plan Problem List: (1) C. difficile colitis ICD Codes: A04.7 - Enterocolitis due to Clostridium difficile Status: Acute Plan: Day #2 oral vancomycin and Dificid. Slight improvement in frequency of diarrhea. Appetite improving with megestrol. Continue to encourage oral solid and liquid intake. (2) Dehydration ICD Codes: E86.0 - Dehydration Status: Acute Plan: Clinically improved with IV fluids. Continue with IV fluids and encourage by mouth intake. (3) Hypokalemia ICD Codes: E87.6 - Hypokalemia Status: Acute Plan: Recurrent. Provide IV potassium supplement. Begin by mouth potassium supplements. Follow potassium level (4) Rectal cancer ICD Codes: C20 - Malignant neoplasm of rectum Status: Chronic Plan: Xeloda on hold. Further treatment per oncology. Rober Avila MD Dec 05, 2016 11:44
[2016-12-05 12:00] VITALS: BP 128/67; PULSE 70; RESP 16; TEMP 98.4; O2SAT 98
[2016-12-05] MEDS: POTASSIUM CHLOR 40 MEQ PREMIX 100 ML IV SCH ×2 (12:50→17:22)
[2016-12-05] MEDS: SODIUM CHLOR 0.9% 1000 ML INJ 1,000 ML IV SCH (15:26)
[2016-12-05 16:00] VITALS: BP_SYST 102; BP_SYST 121; BP_DIAS 60; BP_DIAS 65; PULSE 65; PULSE 80; RESP 14; TEMP 98.2; TEMP 98.5; O2SAT 97; O2SAT 98
[2016-12-05 20:00] VITALS: BP 134/82; PULSE 81; RESP 17; TEMP 98; O2SAT 98
[2016-12-05] MEDS: LATANOPROST 0.005% OPHT SOLN 2.5 ML BTL EACH EYE SCH (21:05)
[2016-12-06] VITALS: BP 123/71; PULSE 75; RESP 16; TEMP 98.6; O2SAT 98
[2016-12-06] MEDS: SODIUM CHLOR 0.9% 1000 ML INJ 1,000 ML IV SCH ×3 (01:54→21:08)
[2016-12-06 04:00] VITALS: BP 119/74; PULSE 75; RESP 14; TEMP 96.1; O2SAT 98
[2016-12-06 08:00] VITALS: BP 116/79; PULSE 76; RESP 16; TEMP 96; O2SAT 99
--- NOTE | 2016-12-06 09:22 | HHI.PR ---
Subjective Remarks Still frequent watery stools. On and off abdominal cramping. Appetite is improved with Megace. Afebrile. Ambulating independently in the room. Current Medications Medications (Trade) Dose Ordered Sig/Nora Route Start Time Stop Time Status Last Admin (NS Flush) 2 ml UNSCH PRN IV FLUSH 12/02/16 15:00 (NS Flush) 2 ml BID IV FLUSH 12/02/16 21:00 (Tylenol) 650 mg Q4H PRN PO 12/02/16 15:00 12/04/16 00:50 (Zofran Inj) 4 mg Q6H PRN IVP 12/02/16 15:00 (Restoril) 15 mg HS PRN PO 12/02/16 15:00 (Narcan Inj) 0.4 mg UNSCH PRN IV PUSH 12/02/16 15:00 (Milk Of Magnesia Liq) 30 ml Q12H PRN PO 12/02/16 15:00 (Cosopt 2-0.5% Opth Soln) 1 drop BID EACH EYE 12/02/16 21:00 12/05/16 21:05 (Xalatan 0.005% Opth Soln) 1 drop HS EACH EYE 12/02/16 21:00 12/05/16 21:05 Sodium Chloride 1,000 ml @ 100 mls/hr Q10H IV 12/04/16 07:00 12/06/16 05:05 (Dificid) 200 mg BID PO 12/04/16 13:00 12/14/16 12:59 12/05/16 21:03 (VANCOMYCIN for oral use only) 125 mg QID PO 12/04/16 13:00 12/05/16 21:02 ([place] 5-325 Mg) 1 tab Q4H PRN PO 12/04/16 14:00 12/04/16 14:38 (Megace Liq) 200 mg BID PO 12/04/16 15:30 12/05/16 10:22 (KCl) 20 meq BID PO 12/05/16 21:00 12/05/16 21:04 Potassium Chloride 100 ml @ 25 mls/hr Q4H IV 12/06/16 09:15 12/06/16 17:14 UNV Objective Vital Signs Date Time Temp Pulse Resp B/P (MAP) Pulse Ox O2 Delivery O2 Flow Rate FiO2 12/06/16 04:00 96.1 75 14 119/74 (89) 98 12/06/16 00:00 98.6 75 16 123/71 (88) 98 12/05/16 20:00 98.0 81 17 134/82 (99) 98 12/05/16 16:00 98.5 80 14 121/65 (83) 98 12/05/16 16:00 98.2 65 14 102/60 (74) 97 12/05/16 12:00 98.4 70 16 128/67 (87) 98 I/O 12/05/16 12/05/16 12/05/16 12/06/16 12/06/16 12/06/16 07:00 15:00 23:00 07:00 15:00 23:00 Intake Total 480 ml 1200 ml 240 ml Balance 480 ml 1200 ml 240 ml Intake Oral 480 ml 1200 ml 240 ml # Voids 3 11 4 # Bowel Movements 2 13 3 In general this is a thin elderly white male lying in bed in no acute distress Cardiovascular examination revealed regular rate and rhythm without murmurs Lungs clear to auscultation Abdomen is soft, nontender, active bowel sounds, nondistended, no masses Result Diagram: 12/05/16 0609 12/06/16 0500 Assessment and Plan Problem List: (1) C. difficile colitis ICD Codes: A04.7 - Enterocolitis due to Clostridium difficile Status: Acute Plan: Day #3 oral vancomycin and Dificid. Continues to have frequent diarrhea. Appetite is better. Will increase IV fluids beyond maintenance due to frequent stools. (2) Dehydration ICD Codes: E86.0 - Dehydration Status: Acute Plan: Clinically improved with IV fluids. Increase IV fluids as above and encourage by mouth intake. (3) Hypokalemia ICD Codes: E87.6 - Hypokalemia Status: Acute Plan: Recurrent. Continue IV potassium supplement. Continue oral potassium supplements. Follow potassium level (4) Rectal cancer ICD Codes: C20 - Malignant neoplasm of rectum Status: Chronic Plan: Xeloda on hold. Further treatment per oncology. Rober Avila MD Dec 06, 2016 09:22
[2016-12-06] MEDS: VANCOMYCIN 500 MG VIAL (FOR ORAL USE ONLY) PO SCH ×4 (10:36→21:02)
[2016-12-06] MEDS: MEGESTROL ACETATE SUSP 400 MG/10 ML CUP PO SCH ×2 (10:37→21:02)
[2016-12-06] MEDS: FIDAXOMICIN 200 MG TAB PO SCH ×2 (10:37→21:01)
[2016-12-06] MEDS: DORZOLAMIDE/TIMOLOL OPTH SOLN 10 ML BTL EACH EYE SCH ×2 (10:38→21:03)
[2016-12-06] MEDS: SODIUM CHLORIDE 0.9% FLUSH 10 ML FLUSH IV FLUSH SCH ×2 (10:38→21:02)
[2016-12-06] MEDS: POTASSIUM CHLORIDE 10 MEQ CAP PO SCH ×2 (10:38→21:02)
[2016-12-06] MEDS: POTASSIUM CHLOR 40 MEQ PREMIX 100 ML IV SCH ×2 (10:39→13:51)
[2016-12-06 12:30] VITALS: BP 119/69; PULSE 69; RESP 18; TEMP 97; O2SAT 98
[2016-12-06 17:00] VITALS: BP 142/85; PULSE 80; RESP 18; TEMP 96.3; O2SAT 96
[2016-12-06] MEDS: ACETAMINOPHEN/HYDROcodone 325 MG/5 MG TAB PO PRN (17:21)
[2016-12-06 20:00] VITALS: BP 117/68; PULSE 72; RESP 17; TEMP 98.2; O2SAT 97
[2016-12-06] MEDS: LATANOPROST 0.005% OPHT SOLN 2.5 ML BTL EACH EYE SCH (21:03)
[2016-12-07] VITALS: BP 123/71; PULSE 76; RESP 16; TEMP 97.8; O2SAT 97
[2016-12-07] MEDS: ACETAMINOPHEN/HYDROcodone 325 MG/5 MG TAB PO PRN ×2 (02:52→12:34)
[2016-12-07 04:00] VITALS: BP 116/89; PULSE 73; RESP 17; TEMP 97; O2SAT 97
[2016-12-07 08:00] VITALS: BP 127/76; PULSE 74; RESP 20; TEMP 97.4; O2SAT 97
--- NOTE | 2016-12-07 08:48 | HHI.PR ---
Subjective Remarks Patient reports that there is a decrease in frequency of his watery stools. Appetite has improved. Ambulating independently in the room. Denies abdominal pain. Current Medications Medications (Trade) Dose Ordered Sig/Nora Route Start Time Stop Time Status Last Admin (NS Flush) 2 ml UNSCH PRN IV FLUSH 12/02/16 15:00 (NS Flush) 2 ml BID IV FLUSH 12/02/16 21:00 12/06/16 21:02 (Tylenol) 650 mg Q4H PRN PO 12/02/16 15:00 12/04/16 00:50 (Zofran Inj) 4 mg Q6H PRN IVP 12/02/16 15:00 (Restoril) 15 mg HS PRN PO 12/02/16 15:00 (Narcan Inj) 0.4 mg UNSCH PRN IV PUSH 12/02/16 15:00 (Milk Of Magnesia Liq) 30 ml Q12H PRN PO 12/02/16 15:00 (Cosopt 2-0.5% Opth Soln) 1 drop BID EACH EYE 12/02/16 21:00 12/06/16 21:03 (Xalatan 0.005% Opth Soln) 1 drop HS EACH EYE 12/02/16 21:00 12/06/16 21:03 Sodium Chloride 1,000 ml @ 100 mls/hr Q10H IV 12/04/16 07:00 12/06/16 21:08 (Dificid) 200 mg BID PO 12/04/16 13:00 12/14/16 12:59 12/06/16 21:01 (VANCOMYCIN for oral use only) 125 mg QID PO 12/04/16 13:00 12/06/16 21:02 ([place] 5-325 Mg) 1 tab Q4H PRN PO 12/04/16 14:00 12/07/16 02:52 (Megace Liq) 200 mg BID PO 12/04/16 15:30 12/06/16 10:37 (KCl) 20 meq BID PO 12/05/16 21:00 12/06/16 21:02 Objective Vital Signs Date Time Temp Pulse Resp B/P (MAP) Pulse Ox O2 Delivery O2 Flow Rate FiO2 12/07/16 04:00 97.0 73 17 116/89 (98) 97 12/07/16 03:52 16 12/07/16 00:00 97.8 76 16 123/71 (88) 97 12/06/16 20:00 98.2 72 17 117/68 (84) 97 12/06/16 17:00 96.3 80 18 142/85 (104) 96 12/06/16 12:30 97.0 69 18 119/69 (86) 98 I/O 12/06/16 12/06/16 12/06/16 12/07/16 12/07/16 12/07/16 07:00 15:00 23:00 07:00 15:00 23:00 Intake Total 240 ml 1380 ml 240 ml Balance 240 ml 1380 ml 240 ml Intake Oral 240 ml 1380 ml 240 ml # Voids 4 6 5 # Bowel Movements 3 6 4 Abdomen is soft, nontender, nondistended with bowel sounds present, no masses Result Diagram: 12/05/16 0609 12/06/16 0500 Assessment and Plan Problem List: (1) C. difficile colitis ICD Codes: A04.7 - Enterocolitis due to Clostridium difficile Status: Acute Plan: Day #4 oral vancomycin and Dificid. Continues to have frequent diarrhea. Appetite is better. Will increase IV fluids beyond maintenance due to frequent stools. (2) Dehydration ICD Codes: E86.0 - Dehydration Status: Acute Plan: Clinically improved with IV fluids. Continue IV fluids until can take adequate fluids by mouth to compensate for GI fluid loss (3) Hypokalemia ICD Codes: E87.6 - Hypokalemia Status: Acute Plan: Recurrent. Recheck potassium level today. Continue with oral potassium supplement (4) Rectal cancer ICD Codes: C20 - Malignant neoplasm of rectum Status: Chronic Plan: Xeloda on hold. Further treatment per oncology. Rober Avila MD Dec 07, 2016 08:48
[2016-12-07] MEDS: SODIUM CHLORIDE 0.9% FLUSH 10 ML FLUSH IV FLUSH SCH ×2 (09:00→21:20)
[2016-12-07] MEDS: DORZOLAMIDE/TIMOLOL OPTH SOLN 10 ML BTL EACH EYE SCH ×2 (09:01→23:01)
[2016-12-07] MEDS: VANCOMYCIN 500 MG VIAL (FOR ORAL USE ONLY) PO SCH ×4 (09:01→21:20)
[2016-12-07] MEDS: MEGESTROL ACETATE SUSP 400 MG/10 ML CUP PO SCH ×2 (09:02→21:20)
[2016-12-07] MEDS: POTASSIUM CHLORIDE 10 MEQ CAP PO SCH ×2 (09:02→21:20)
[2016-12-07] MEDS: FIDAXOMICIN 200 MG TAB PO SCH ×2 (09:02→21:20)
[2016-12-07] MEDS: SODIUM CHLOR 0.9% 1000 ML INJ 1,000 ML IV SCH (12:41)
[2016-12-07] MEDS ORDERED: HYDROmorphone HCL PF 2 MG/ML VIAL IV PUSH ONE (14:00)
[2016-12-07 14:10] VITALS: BP 127/94; PULSE 81; RESP 20; TEMP 97.6; O2SAT 97
--- NOTE | 2016-12-07 14:54 | RADRPT ---
EXAM DATE/TIME: 12/07/2016 14:10 [facility] COMPARISON: CTA CHEST W 3D RECON, June 10, 2011, 16:16. INDICATIONS : Abdominal pain. MEDICAL HISTORY : Carcinoma, colon. C-diff. SURGICAL HISTORY : Colon resection. Port placement. ENCOUNTER: Subsequent ACUITY: 3 days PAIN SCORE: 10/10 LOCATION: Umbilical FINDINGS: The bowel gas pattern appears normal. No free air is identified. No organomegaly is evident. There is multilevel degenerative change throughout the spine. There is triangular calcification in the left upper quadrant which may reflect a renal stone measuring 2 cm.. CONCLUSION: 1. No evidence of obstruction. 2. Possible left renal stone Ron Cavazos MD on December 07, 2016 at 14:49 Board Certified Radiologist. This report was verified electronically.
[2016-12-07 17:30] VITALS: BP 147/73; PULSE 79; TEMP 98; O2SAT 97
--- NOTE | 2016-12-07 17:43 | RADRPT ---
EXAM DATE/TIME: 12/07/2016 17:01 [facility] COMPARISON: CT SIMULATION, September 04, 2016, 9:11. INDICATIONS : Mid abdomen pain. Evaluate for renal stone. ORAL CONTRAST: No oral contrast ingested. RADIATION DOSE: 9.92 CTDIvol (mGy) MEDICAL HISTORY : Cardiovascular disease. Renal calculi. Carcinoma, rectal. SURGICAL HISTORY : Appendectomy. ENCOUNTER: Initial ACUITY: 1 day PAIN SCALE: 7/10 LOCATION: Bilateral abdomen TECHNIQUE: Volumetric scanning of the abdomen and pelvis was performed. Using automated exposure control and ad justment of the mA and/or kV according to patient size, radiation dose was kept as low as reasonably achievable to obtain optimal diagnostic quality images. DICOM format image data is available electro nically for review and comparison. FINDINGS: LOWER LUNGS: The visualized lower lungs are clear. LIVER: Homogeneous density without lesion. There is no dilation of the biliary tree. No calcified gallston es. SPLEEN: Normal size without lesion. PANCREAS: Within normal limits. KIDNEYS: Redemonstration of multiple nonobstructing calcified calyceal calculi. This includes a large 1.5 cm c alcified calculus in the superior pole. Kidneys are symmetrical in appearance without evidence for hy dronephrosis. ADRENAL GLANDS: Within normal limits. VASCULAR: There is no aortic aneurysm. BOWEL/MESENTERY: Stomach is mildly distended. The duodenum and proximal jejunal loops are normal in caliber. Ileal loo ps are diffusely fluid filled and in the upper limits of normal in size diffusely extending to the te rminal ileum. No definitive distal transition point is identified. Air and stool is noted throughout the colon which otherwise appears unremarkable. There is asymmetrical rectal wall prominence in this patient with history of rectal CA. There is mild diffuse mesenteric edema and trace ascites particula rly in the right pericolic gutter region. There is no pneumatosis or free air. ABDOMINAL WALL: Within normal limits. RETROPERITONEUM: There is no lymphadenopathy. BLADDER: Single 2 mm calcified calculus in the posterior bladder. This is new since prior exam. REPRODUCTIVE: Within normal limits. INGUINAL: There is no lymphadenopathy or hernia. MUSCULOSKELETAL: Degenerative spondylosis of the lower lumbar spine without abnormal lytic or blastic bony lesions. CONCLUSION: 1. Multiple stable nonobstructing left calyceal calculi with a large calculus in the superior pole me asuring up to 1.5 cm. There is a new 2 mm bladder calculus which may reflect a recently passed stone although there is no significant residual hydronephrosis. 2. Diffusely fluid-filled marginally distended loops of ileum with decompressed more proximal jejunal loops. No distal transition point. There is also associated diffuse mesenteric edema and trace devel oping ascites. Overall findings are most concerning for enteritis and developing adynamic ileus. 3. Asymmetrical rectal wall thickening in this patient with history of rectal CA. No definitive evide nce for metastatic disease in the abdomen although evaluation is limited due to lack of contrast. José Nino MD on December 07, 2016 at 17:29 Board Certified Radiologist. This report was verified electronically.
[2016-12-07] MEDS: POTASSIUM CHLOR 40 MEQ PREMIX 100 ML IV-CENTRAL SCH ×2 (18:23→23:01)
[2016-12-07] MEDS: HYDROmorphone HCL PF 1 MG/ML VIAL IV PUSH PRN ×2 (18:25→21:20)
[2016-12-07 20:00] VITALS: BP 151/81; PULSE 113; RESP 18; TEMP 98.3; O2SAT 94
[2016-12-07] MEDS: LATANOPROST 0.005% OPHT SOLN 2.5 ML BTL EACH EYE SCH (23:04)
[2016-12-08] VITALS: BP 112/66; PULSE 72; RESP 17; TEMP 96.6; O2SAT 97
[2016-12-08 04:00] VITALS: BP 121/83; PULSE 111; RESP 17; TEMP 98.1; O2SAT 97
[2016-12-08 05:25] LABS: AUTOMATED NEUTROPHIL # 8.2 TH/MM3 (1.8-7.7); BASOPHIL % 0.2 % (0.0-2.0); EOSINOPHIL % 0.1 % (0.0-4.0); HEMATOCRIT 30.3 % (39.0-51.0); HEMO FLAGS DIFF FINAL; LYMPH % 11.1 % (9.0-44.0); LYMPHOCYTE # 1.2 TH/MM3 (1.0-4.8); MEAN CORPUSCULAR HEMOGLOBIN 34.7 PG (27.0-34.0); MEAN CORPUSCULAR HGB CONC 34.1 % (32.0-36.0); MONO % 12.2 % (0.0-8.0); NEUT % 76.4 % (16.0-70.0); PLATELET COUNT 195 TH/MM3 (150-450); RED BLOOD COUNT 2.97 MIL/MM3 (4.50-5.90); RED CELL DISTRIBUTION WIDTH 19.4 % (11.6-17.2); WHITE BLOOD COUNT 10.8 TH/MM3 (4.0-11.0)
[2016-12-08 05:52] LABS: POTASSIUM 3.8 MEQ/L (3.5-5.1)
[2016-12-08] MEDS: D5-1/2 NS + KCL 40 MEQ INJ 1,000 ML IV SCH ×2 (05:55→16:13)
[2016-12-08] MEDS: ACETAMINOPHEN/HYDROcodone 325 MG/5 MG TAB PO PRN ×3 (06:06→21:20)
[2016-12-08 08:00] VITALS: BP_SYST 119; BP_SYST 138; BP_DIAS 64; BP_DIAS 69; PULSE 60; PULSE 78; RESP 14; TEMP 98.2; O2SAT 97; O2SAT 98
[2016-12-08] MEDS: POTASSIUM CHLORIDE 10 MEQ CAP PO SCH ×2 (08:11→21:10)
[2016-12-08] MEDS: FIDAXOMICIN 200 MG TAB PO SCH ×2 (08:11→21:10)
[2016-12-08] MEDS: SODIUM CHLORIDE 0.9% FLUSH 10 ML FLUSH IV FLUSH SCH ×2 (08:12→21:22)
[2016-12-08] MEDS: MEGESTROL ACETATE SUSP 400 MG/10 ML CUP PO SCH ×2 (08:12→21:07)
[2016-12-08] MEDS: DORZOLAMIDE/TIMOLOL OPTH SOLN 10 ML BTL EACH EYE SCH ×2 (08:12→21:22)
[2016-12-08] MEDS: VANCOMYCIN 500 MG VIAL (FOR ORAL USE ONLY) PO SCH ×4 (08:12→21:09)
[2016-12-08 12:00] VITALS: BP 107/60; PULSE 79; RESP 14; TEMP 98.8; O2SAT 97
--- NOTE | 2016-12-08 12:23 | HHI.PR ---
Subjective Remarks Abdominal pain has improved. Patient states that frequency and volume of diarrhea has improved. Appetite better today. He ate well for breakfast and lunch. Ambulating in room independently. No nausea or vomiting. Current Medications Medications (Trade) Dose Ordered Sig/Nora Route Start Time Stop Time Status Last Admin (NS Flush) 2 ml UNSCH PRN IV FLUSH 12/02/16 15:00 (NS Flush) 2 ml BID IV FLUSH 12/02/16 21:00 12/06/16 21:02 (Tylenol) 650 mg Q4H PRN PO 12/02/16 15:00 12/04/16 00:50 (Zofran Inj) 4 mg Q6H PRN IVP 12/02/16 15:00 (Restoril) 15 mg HS PRN PO 12/02/16 15:00 (Narcan Inj) 0.4 mg UNSCH PRN IV PUSH 12/02/16 15:00 (Milk Of Magnesia Liq) 30 ml Q12H PRN PO 12/02/16 15:00 (Cosopt 2-0.5% Opth Soln) 1 drop BID EACH EYE 12/02/16 21:00 12/08/16 08:12 (Xalatan 0.005% Opth Soln) 1 drop HS EACH EYE 12/02/16 21:00 12/07/16 23:04 (Dificid) 200 mg BID PO 12/04/16 13:00 12/14/16 12:59 12/08/16 08:11 (VANCOMYCIN for oral use only) 125 mg QID PO 12/04/16 13:00 12/08/16 08:12 ([place] 5-325 Mg) 1 tab Q4H PRN PO 12/04/16 14:00 12/08/16 06:06 (Megace Liq) 200 mg BID PO 12/04/16 15:30 12/08/16 08:12 (KCl) 20 meq BID PO 12/05/16 21:00 12/08/16 08:11 (Dilaudid Pf Inj) 1 mg Q3H PRN IV PUSH 12/07/16 15:15 12/07/16 21:20 Potassium Chloride/Dextrose/ Sod Cl 1,000 ml @ 100 mls/hr Q10H IV 12/07/16 18:00 12/08/16 05:55 Objective Vital Signs Date Time Temp Pulse Resp B/P (MAP) Pulse Ox O2 Delivery O2 Flow Rate FiO2 12/08/16 08:00 12/08/16 08:00 98.2 78 14 138/69 (92) 97 12/08/16 04:00 98.1 111 17 121/83 (96) 97 12/08/16 00:00 96.6 72 17 112/66 (81) 97 12/07/16 20:00 98.3 113 18 151/81 (104) 94 12/07/16 17:30 98.0 79 147/73 (97) 97 12/07/16 14:10 97.6 81 20 127/94 (105) 97 I/O 12/07/16 12/07/16 12/07/16 12/08/16 12/08/16 12/08/16 07:00 15:00 23:00 07:00 15:00 23:00 Intake Total 240 ml 627 ml 1080 ml Balance 240 ml 627 ml 1080 ml Intake Oral 240 ml 627 ml IV Total 1080 ml # Voids 5 3 # Bowel Movements 4 CV: Regular rate and rhythm without murmurs Lungs: Clear to auscultation Abdomen: Soft, nontender, nondistended with active bowel sounds, no masses Result Diagram: 12/08/16 0445 12/08/16 0445 Assessment and Plan Problem List: (1) C. difficile colitis ICD Codes: A04.7 - Enterocolitis due to Clostridium difficile Status: Acute Plan: Day #5 oral vancomycin and Dificid. Diarrhea is beginning to improve. Appetite is significantly better today. Continue with megestrol. (2) Dehydration ICD Codes: E86.0 - Dehydration Status: Acute Plan: Clinically improved with IV fluids. Continue IV fluids until can take adequate fluids by mouth to compensate for GI fluid loss (3) Hypokalemia ICD Codes: E87.6 - Hypokalemia Status: Resolved Plan: Corrected. Continue with oral potassium supplement (4) Rectal cancer ICD Codes: C20 - Malignant neoplasm of rectum Status: Chronic Plan: Xeloda on hold. Further treatment per oncology. Rober Avila MD Dec 08, 2016 12:23
--- NOTE | 2016-12-08 14:46 | HHI.IDPN ---
Subjective Subjective Remarks Mr. Seaman is a 76-year-old male with a long-standing history of rectal bleeding initially due to hemorrhoids and subsequently July [address] scan which showed thickening of the distal rectum over 6 cm[address] He had a [address] scan of the thorax did not show any evidence of metastatic disease. In August 2016 patient underwent a colonoscopy performed by Dr. Bautista. 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 In addition he had a large polyp in the ascending colon which was thought to be an intramucosal adenocarcinoma. He had an MRI of the pelvis done locally which showed thickening over distance of 7 cm in the rectum. He is staged as T3, N0, M0 rectal cancer at this time. He has seen physicians at the [facility] as well. Patient also had a 7 cm mass in the ascending colon which was removed with mucosal resection and was an invasive adenocarcinoma by pathology. Patient has been undergoing chemotherapy as well as radiation therapy. Patient reports being on XELODA along with other medications. Patient is also scheduled to have radiation therapy along with chemotherapy. One week prior to admission patient underwent his third cycle of oxaliplatin and began Xeloda. Before he started the session of chemotherapy patient had an episode of herpes zoster and was placed on high-dose acyclovir. Patient subsequently started developing abdominal pain, diarrhea, cramps and dehydration and was hospitalized for the same. Patient made criteria for sepsis on admission which included elevated white count of 17.2, tachycardia at 110 and source of infection being diarrhea now diagnosed as C. difficile. Infectious disease is consulted for evaluation and management of C. difficile as well as recommendation as to how to best control/ prevent recurrences of C. difficile especially given the fact that patient could have mucositis from other reasons. Overnight events reviewed No fever No rash Diarrhea: stool more formed since Dilaudid started. Volume less as well. Reports Dilaudid started for renal stones. Pain controlled now. Antibiotics Vanco oral Dificid Lines Line sites with no e.o infection Past Medical History reviewed Allergies: Coded Allergies: No Known Allergies (Unverified , 06/10/11) Objective . Vital Signs Date Time Temp Pulse Resp B/P (MAP) Pulse Ox O2 Delivery O2 Flow Rate FiO2 12/08/16 12:00 98.8 79 14 107/60 (76) 97 12/08/16 08:00 12/08/16 08:00 98.2 78 14 138/69 (92) 97 12/08/16 04:00 98.1 111 17 121/83 (96) 97 12/08/16 00:00 96.6 72 17 112/66 (81) 97 12/07/16 20:00 98.3 113 18 151/81 (104) 94 12/07/16 17:30 98.0 79 147/73 (97) 97 12/08/16 12/08/16 12/09/16 15:00 23:00 07:00 Intake Total 100 ml Balance 100 ml IV Total 100 ml . Laboratory Tests Test 12/08/16 04:45 White Blood Count 10.8 TH/MM3 Red Blood Count 2.97 MIL/MM3 Hemoglobin 10.3 GM/DL Hematocrit 30.3 % Mean Corpuscular Volume 102.0 FL Mean Corpuscular Hemoglobin 34.7 PG Mean Corpuscular Hemoglobin Concent 34.1 % Red Cell Distribution Width 19.4 % Platelet Count 195 TH/MM3 Mean Platelet Volume 8.9 FL Neutrophils (%) (Auto) 76.4 % Lymphocytes (%) (Auto) 11.1 % Monocytes (%) (Auto) 12.2 % Eosinophils (%) (Auto) 0.1 % Basophils (%) (Auto) 0.2 % Neutrophils # (Auto) 8.2 TH/MM3 Lymphocytes # (Auto) 1.2 TH/MM3 Monocytes # (Auto) 1.3 TH/MM3 Eosinophils # (Auto) 0.0 TH/MM3 Basophils # (Auto) 0.0 TH/MM3 CBC Comment DIFF FINAL Differential Comment Laboratory Tests Test 12/07/16 09:20 12/08/16 04:45 Potassium Level 3.1 MEQ/L 3.8 MEQ/L Blood Urea Nitrogen 3 MG/DL Creatinine 0.38 MG/DL Random Glucose 103 MG/DL Calcium Level 7.5 MG/DL Sodium Level 144 MEQ/L Chloride Level 113 MEQ/L Carbon Dioxide Level 24.0 MEQ/L Anion Gap 7 MEQ/L Estimat Glomerular Filtration Rate 223 ML/MIN Imaging Last Impressions Abdomen/Pelvis CT 12/07/16 0000 Signed Impressions: Service Date/Time: Wednesday, December 07, 2016 17:01 - CONCLUSION: 1. Multiple stable nonobstructing left calyceal calculi with a large calculus in the superior pole measuring up to 1.5 cm. There is a new 2 mm bladder calculus which may reflect a recently passed stone although there is no significant residual hydronephrosis. 2. Diffusely fluid-filled marginally distended loops of ileum with decompressed more proximal jejunal loops. No distal transition point. There is also associated diffuse mesenteric edema and trace developing ascites. Overall findings are most concerning for enteritis and developing adynamic ileus. 3. Asymmetrical rectal wall thickening in this patient with history of rectal CA. No definitive evidence for metastatic disease in the abdomen although evaluation is limited due to lack of contrast. José Nino MD Abdomen X-Ray 12/07/16 0000 Signed Impressions: Service Date/Time: Wednesday, December 07, 2016 14:10 - CONCLUSION: 1. No evidence of obstruction. 2. Possible left renal stone Ron Cavazos MD Chest X-Ray 12/02/16 0000 Signed Impressions: Service Date/Time: Friday, December 02, 2016 19:07 - CONCLUSION: No evidence of acute cardiopulmonary disease. Saad Haskins MD Physical Exam GENERAL: This is a well-nourished, well-developed patient, in no apparent distress. SKIN: No rashes, ecchymoses or lesions. Cool and dry. HEAD: Atraumatic. Normocephalic. No temporal or scalp tenderness. EYES: Pupils equal round and reactive. Extraocular motions intact. No scleral icterus. No injection or drainage. ENT: Nose without bleeding, purulent drainage or septal hematoma. Throat without erythema, tonsillar hypertrophy or exudate. Uvula midline. Airway patent. NECK: Trachea midline. No JVD or lymphadenopathy. Supple, nontender, no meningeal signs. CARDIOVASCULAR: Regular rate and rhythm without murmurs, gallops, or rubs. RESPIRATORY: Clear to auscultation. Breath sounds equal bilaterally. No wheezes , rales, or rhonchi. GASTROINTESTINAL: Abdomen soft, non-tender, nondistended. No hepato-splenomegaly , or palpable masses. No guarding. MUSCULOSKELETAL: Extremities without clubbing, cyanosis, or edema. No joint tenderness, effusion, or edema noted. No calf tenderness. Negative Homans sign bilaterally. NEUROLOGICAL: Awake and alert. Cranial nerves II through XII intact. Motor and sensory grossly within normal limits. Five out of 5 muscle strength in all muscle groups. Normal speech. Psych cooperative IV line sites with no e.o infection PORT site with no e.o infection Assessment & Plan Remarks Sepsis present on admission C. difficile positive diarrhea with colitis Hypoalbuminemia Rectal cancer Ascending colon cancer Recommendations Continue Oral vancomycin 125 mg by mouth every 6 hours Continue Dificid as patient is on concomitant chemotherapy shortly. If large volume diarrhea persists will consider adding Asacol for short duration. Follow clinically. Angelina Muir MD Dec 08, 2016 14:46
[2016-12-08 16:00] VITALS: BP 121/69; PULSE 75; RESP 16; TEMP 98.5; O2SAT 98
[2016-12-08 20:00] VITALS: BP 132/88; PULSE 74; RESP 17; TEMP 97.3; O2SAT 98
[2016-12-08] MEDS: LATANOPROST 0.005% OPHT SOLN 2.5 ML BTL EACH EYE SCH (21:22)
[2016-12-09] VITALS: BP 132/69; PULSE 72; RESP 17; TEMP 96.1; O2SAT 98
[2016-12-09] MEDS: D5-1/2 NS + KCL 40 MEQ INJ 1,000 ML IV SCH ×3 (03:00→18:22)
[2016-12-09 04:00] VITALS: BP 113/74; PULSE 79; RESP 17; TEMP 97; O2SAT 98
[2016-12-09 08:00] VITALS: BP 130/79; PULSE 68; RESP 12; TEMP 97.2; O2SAT 98
[2016-12-09] MEDS: SODIUM CHLORIDE 0.9% FLUSH 10 ML FLUSH IV FLUSH SCH ×2 (09:00→20:23)
--- NOTE | 2016-12-09 10:20 | PD.ONC.PN ---
Subjective Subjective Remarks discourage. still with loose stool although some of this may be due to chemotherapy- XELODA Objective Data Date Time Temp Pulse Resp B/P (MAP) Pulse Ox O2 Delivery O2 Flow Rate FiO2 12/09/16 08:00 97.2 68 12 130/79 (96) 98 12/09/16 04:00 97.0 79 17 113/74 (87) 98 12/09/16 00:00 96.1 72 17 132/69 (90) 98 12/08/16 20:00 97.3 74 17 132/88 (103) 98 12/08/16 16:00 98.5 75 16 121/69 (86) 98 12/08/16 12:00 98.8 79 14 107/60 (76) 97 Result Diagram: 12/08/16 0445 12/08/16 0445 Administered Medications Medications (Trade) Dose Ordered Sig/Nora Route PRN Reason Start Time Stop Time Status Last Admin Dose Admin Sodium Chloride (NS Flush) 2 ml BID IV FLUSH 12/02/16 21:00 12/06/16 21:02 Acetaminophen (Tylenol) 650 mg Q4H PRN PO TEMP>100.4F,PAIN1-3 12/02/16 15:00 12/04/16 00:50 Dorzolamide/ Timolol (Cosopt 2-0.5% Opth Soln) 1 drop BID EACH EYE 12/02/16 21:00 12/08/16 21:22 Latanoprost (Xalatan 0.005% Opth Soln) 1 drop HS EACH EYE 12/02/16 21:00 12/08/16 21:22 Fidaxomicin (Dificid) 200 mg BID PO 12/04/16 13:00 12/14/16 12:59 12/08/16 21:10 Vancomycin HCl (VANCOMYCIN for oral use only) 125 mg QID PO 12/04/16 13:00 12/08/16 21:09 Acetaminophen/ Hydrocodone Bitart ([place] 5-325 Mg) 1 tab Q4H PRN PO pain4-10 12/04/16 14:00 12/08/16 21:20 Megestrol Acetate (Megace Liq) 200 mg BID PO 12/04/16 15:30 12/08/16 08:12 Potassium Chloride (KCl) 20 meq BID PO 12/05/16 21:00 12/08/16 21:10 Hydromorphone HCl (Dilaudid Pf Inj) 1 mg Q3H PRN IV PUSH PAIN SCALE 4 TO 10 12/07/16 15:15 12/07/16 21:20 Potassium Chloride/Dextrose/ Sod Cl 1,000 ml @ 80 mls/hr [id number] IV 12/07/16 18:00 12/09/16 03:00 Objective Remarks GENERAL: gaunt SKIN: Warm and dry. HEAD: Normocephalic. EYES: No scleral icterus. No injection or drainage. NECK: Supple, trachea midline. No JVD or lymphadenopathy. LYMPHATIC: No adenopathy. CARDIOVASCULAR: Regular rate and rhythm without murmurs. RESPIRATORY: Breath sounds equal bilaterally. No accessory muscle use. GASTROINTESTINAL: Abdomen soft, non-tender, nondistended. EXTREMITIES: No cyanosis, or edema. MUSCULOSKELETAL: muscle wasting. NEUROLOGICAL: No obvious focal deficit. Awake, alert, and oriented x3. PSYCHIATRIC: Appropriate mood and affect; insight and judgment normal. Assessment/Plan Assessment 1: He is becoming depressed with the accumulation of problems surrounding his treatment and the stay in the hospital. He is receiving his medicines orally at this time. Plan 1: Hopefully home on oral vancomycin and Dificid in the next day 2: continue megace for appetite.' 3: will see next week but anticipate holding his third cycle of therapy until stronger 4: I spoke with Haley our oncology - nutrition -specialist and she will visit today to help him with food choices given his current issues of rectal/colon ca , C Dif, and chemotherapy. 5: He has a long road ahead after the neoadjuvant chemo which will include XRT/ Xeloda and then most importantly surgery. Bryant Lemons MD Dec 09, 2016 10:20
[2016-12-09] MEDS: POTASSIUM CHLORIDE 10 MEQ CAP PO SCH ×2 (10:40→20:23)
[2016-12-09] MEDS: MEGESTROL ACETATE SUSP 400 MG/10 ML CUP PO SCH ×2 (10:40→20:23)
[2016-12-09] MEDS: FIDAXOMICIN 200 MG TAB PO SCH ×2 (10:40→20:23)
[2016-12-09] MEDS: VANCOMYCIN 500 MG VIAL (FOR ORAL USE ONLY) PO SCH ×4 (10:40→20:22)
[2016-12-09] MEDS: DORZOLAMIDE/TIMOLOL OPTH SOLN 10 ML BTL EACH EYE SCH ×2 (10:42→20:24)
[2016-12-09 12:00] VITALS: BP 116/73; PULSE 73; RESP 14; TEMP 98.3; O2SAT 98
--- NOTE | 2016-12-09 12:26 | HHI.PR ---
Subjective Remarks Had a bad night. Had frequent stools and frequent voiding. Appetite remains improved. Has intermittent abdominal discomfort associated with cramping. No nausea or vomiting. Stools no longer exclusively liquid.. Current Medications Medications (Trade) Dose Ordered Sig/Nora Route Start Time Stop Time Status Last Admin (NS Flush) 2 ml UNSCH PRN IV FLUSH 12/02/16 15:00 (NS Flush) 2 ml BID IV FLUSH 12/02/16 21:00 12/06/16 21:02 (Tylenol) 650 mg Q4H PRN PO 12/02/16 15:00 12/04/16 00:50 (Zofran Inj) 4 mg Q6H PRN IVP 12/02/16 15:00 (Restoril) 15 mg HS PRN PO 12/02/16 15:00 (Narcan Inj) 0.4 mg UNSCH PRN IV PUSH 12/02/16 15:00 (Milk Of Magnesia Liq) 30 ml Q12H PRN PO 12/02/16 15:00 (Cosopt 2-0.5% Opth Soln) 1 drop BID EACH EYE 12/02/16 21:00 12/09/16 10:42 (Xalatan 0.005% Opth Soln) 1 drop HS EACH EYE 12/02/16 21:00 12/08/16 21:22 (Dificid) 200 mg BID PO 12/04/16 13:00 12/14/16 12:59 12/09/16 10:40 (VANCOMYCIN for oral use only) 125 mg QID PO 12/04/16 13:00 12/09/16 10:40 ([place] 5-325 Mg) 1 tab Q4H PRN PO 12/04/16 14:00 12/08/16 21:20 (Megace Liq) 200 mg BID PO 12/04/16 15:30 12/09/16 10:40 (KCl) 20 meq BID PO 12/05/16 21:00 12/09/16 10:40 (Dilaudid Pf Inj) 1 mg Q3H PRN IV PUSH 12/07/16 15:15 12/07/16 21:20 Potassium Chloride/Dextrose/ Sod Cl 1,000 ml @ 80 mls/hr [id number] IV 12/07/16 18:00 12/09/16 03:00 Objective Vital Signs Date Time Temp Pulse Resp B/P (MAP) Pulse Ox O2 Delivery O2 Flow Rate FiO2 12/09/16 08:00 97.2 68 12 130/79 (96) 98 12/09/16 04:00 97.0 79 17 113/74 (87) 98 12/09/16 00:00 96.1 72 17 132/69 (90) 98 12/08/16 20:00 97.3 74 17 132/88 (103) 98 12/08/16 16:00 98.5 75 16 121/69 (86) 98 I/O 12/08/16 12/08/16 12/08/16 12/09/16 12/09/16 12/09/16 07:00 15:00 23:00 07:00 15:00 23:00 Intake Total 100 ml 1020 ml Balance 100 ml 1020 ml IV Total 100 ml 1020 ml # Voids 3 1 # Bowel Movements 9 Abdomen: Soft, nontender, nondistended with active bowel sounds, no masses Result Diagram: 12/08/16 0445 12/08/16 0445 Assessment and Plan Problem List: (1) C. difficile colitis ICD Codes: A04.7 - Enterocolitis due to Clostridium difficile Status: Acute Plan: Day #6 oral vancomycin and Dificid. Reviewed infectious disease no. Patient will continue with current medication regimen. We will begin to wean IV fluids. The patient can be discharged home when he can take adequate oral intake to compensate for diarrhea in order to prevent recurrent dehydration. (2) Hypokalemia ICD Codes: E87.6 - Hypokalemia Status: Resolved Plan: Corrected. Continue with oral potassium supplement. Recheck potassium level in the morning (3) Rectal cancer ICD Codes: C20 - Malignant neoplasm of rectum Status: Chronic Plan: Xeloda on hold. Reviewed Dr. Lemons' note. Further treatment per his orders. Discharge Planning Will plan to discontinue IV fluids tomorrow and see how patient does with regard to oral intake. Anticipate home Wednesday or Wednesday. Rober Avila MD Dec 09, 2016 12:26
[2016-12-09 16:00] VITALS: BP 111/68; PULSE 75; RESP 14; TEMP 98.3; O2SAT 97
[2016-12-09] MEDS: ACETAMINOPHEN/HYDROcodone 325 MG/5 MG TAB PO PRN ×2 (16:12→23:15)
[2016-12-09 20:00] VITALS: BP 103/67; PULSE 71; RESP 17; TEMP 98.2; O2SAT 96
[2016-12-09] MEDS: LATANOPROST 0.005% OPHT SOLN 2.5 ML BTL EACH EYE SCH (20:25)
[2016-12-10] VITALS: BP 119/75; PULSE 76; RESP 17; TEMP 96.6; O2SAT 97
[2016-12-10 04:00] VITALS: BP 133/77; PULSE 73; RESP 17; TEMP 97.9; O2SAT 96
[2016-12-10] MEDS: ACETAMINOPHEN/HYDROcodone 325 MG/5 MG TAB PO PRN ×2 (05:38→17:55)
[2016-12-10 06:18] LABS: BICARBONATE 24.8 MEQ/L (21.0-32.0); POTASSIUM 4.1 MEQ/L (3.5-5.1)
[2016-12-10 08:00] VITALS: BP 120/70; PULSE 63; RESP 16; TEMP 97.5; O2SAT 97
[2016-12-10] MEDS: POTASSIUM CHLORIDE 10 MEQ CAP PO SCH ×2 (08:59→19:58)
--- NOTE | 2016-12-10 08:59 | HHI.PR ---
Subjective Remarks Stools are improving. Less watery stools and more semisolid. Still complains of gas pains and cramping at times. Appetite is good. Ambulating in the room independently. Denies any nausea or vomiting. Current Medications Medications (Trade) Dose Ordered Sig/Nora Route Start Time Stop Time Status Last Admin (NS Flush) 2 ml UNSCH PRN IV FLUSH 12/02/16 15:00 (NS Flush) 2 ml BID IV FLUSH 12/02/16 21:00 12/06/16 21:02 (Tylenol) 650 mg Q4H PRN PO 12/02/16 15:00 12/04/16 00:50 (Zofran Inj) 4 mg Q6H PRN IVP 12/02/16 15:00 (Restoril) 15 mg HS PRN PO 12/02/16 15:00 (Narcan Inj) 0.4 mg UNSCH PRN IV PUSH 12/02/16 15:00 (Milk Of Magnesia Liq) 30 ml Q12H PRN PO 12/02/16 15:00 (Cosopt 2-0.5% Opth Soln) 1 drop BID EACH EYE 12/02/16 21:00 12/09/16 20:24 (Xalatan 0.005% Opth Soln) 1 drop HS EACH EYE 12/02/16 21:00 12/09/16 20:25 (Dificid) 200 mg BID PO 12/04/16 13:00 12/14/16 12:59 12/09/16 20:23 (VANCOMYCIN for oral use only) 125 mg QID PO 12/04/16 13:00 12/09/16 20:22 ([place] 5-325 Mg) 1 tab Q4H PRN PO 12/04/16 14:00 12/10/16 05:38 (Megace Liq) 200 mg BID PO 12/04/16 15:30 12/09/16 10:40 (KCl) 20 meq BID PO 12/05/16 21:00 12/09/16 20:23 (Dilaudid Pf Inj) 1 mg Q3H PRN IV PUSH 12/07/16 15:15 12/07/16 21:20 Potassium Chloride/Dextrose/ Sod Cl 1,000 ml @ 40 mls/hr Q24H IV 12/07/16 18:00 12/09/16 16:14 Objective Vital Signs Date Time Temp Pulse Resp B/P (MAP) Pulse Ox O2 Delivery O2 Flow Rate FiO2 12/10/16 04:00 97.9 73 17 133/77 (95) 96 12/10/16 00:00 96.6 76 17 119/75 (90) 97 12/09/16 20:00 98.2 71 17 103/67 (79) 96 12/09/16 16:00 98.3 75 14 111/68 (82) 97 12/09/16 12:00 98.3 73 14 116/73 (87) 98 I/O 12/09/16 12/09/16 12/09/16 12/10/16 12/10/16 12/10/16 07:00 15:00 23:00 07:00 15:00 23:00 Intake Total 480 ml Balance 480 ml Intake Oral 480 ml # Voids 1 Abdomen: Soft, nontender, nondistended with bowel sounds present, no masses Result Diagram: 12/08/16 0445 12/10/16 0540 Assessment and Plan Problem List: (1) C. difficile colitis ICD Codes: A04.7 - Enterocolitis due to Clostridium difficile Status: Acute Plan: Day #7 oral vancomycin and Dificid. I have discontinued IV fluids today. We'll see how patient does with regard to oral intake. He needs to be able to take in adequate amounts of free water to compensate for loose stools. Will need to discuss with infectious disease the length of treatment for oral vancomycin and Dificid. (2) Hypokalemia ICD Codes: E87.6 - Hypokalemia Status: Resolved Plan: Corrected. Continue with oral potassium supplement. Recheck potassium level in the morning (3) Rectal cancer ICD Codes: C20 - Malignant neoplasm of rectum Status: Chronic Plan: Xeloda on hold. Reviewed Dr. Lemons' note. Further treatment per his orders. Discharge Planning Possible discharge home tomorrow Rober Avila MD Dec 10, 2016 08:59
[2016-12-10] MEDS: SODIUM CHLORIDE 0.9% FLUSH 10 ML FLUSH IV FLUSH SCH ×2 (09:00→19:59)
[2016-12-10] MEDS: FIDAXOMICIN 200 MG TAB PO SCH ×2 (09:00→19:58)
[2016-12-10] MEDS: VANCOMYCIN 500 MG VIAL (FOR ORAL USE ONLY) PO SCH ×4 (09:00→19:58)
[2016-12-10] MEDS: MEGESTROL ACETATE SUSP 400 MG/10 ML CUP PO SCH ×2 (09:00→20:59)
[2016-12-10] MEDS: DORZOLAMIDE/TIMOLOL OPTH SOLN 10 ML BTL EACH EYE SCH ×2 (09:00→19:59)
--- NOTE | 2016-12-10 11:26 | HHI.PR ---
Addendum to Inpatient Note Addendum Reason: Additional Documentation Additional Information d/w before would recommend a 14 day course of oral vanco. Would recommend finishing the dificid course for remaining days. Vanco stop date to be decided based on resolution of symptoms outpatient but 2 week course ok if symptoms resolve. Will sign off please call back if any change in clinical condition or questions. Angelina Muir MD Dec 10, 2016 10:30
[2016-12-10 12:00] VITALS: BP 126/69; PULSE 61; RESP 16; TEMP 98.5; O2SAT 98
[2016-12-10 16:00] VITALS: BP 126/72; PULSE 83; RESP 16; TEMP 98.9; O2SAT 98
[2016-12-10] MEDS: LATANOPROST 0.005% OPHT SOLN 2.5 ML BTL EACH EYE SCH (19:59)
[2016-12-10 20:00] VITALS: BP 122/70; PULSE 83; RESP 17; TEMP 97.6; O2SAT 95
[2016-12-11] VITALS: BP 125/82; PULSE 93; RESP 17; TEMP 98; O2SAT 98
[2016-12-11 04:00] VITALS: BP 141/80; PULSE 90; RESP 17; TEMP 97.6; O2SAT 97
[2016-12-11 05:29] LABS: BICARBONATE 25.3 MEQ/L (21.0-32.0); POTASSIUM 3.6 MEQ/L (3.5-5.1)
--- NOTE | 2016-12-11 08:42 | HHI.PR ---
Subjective Remarks The patient reports a lot of abdominal cramping and frequent loose stools yesterday. They were better overnight. Appetite is good. No fever or chills. Current Medications Medications (Trade) Dose Ordered Sig/Nora Route Start Time Stop Time Status Last Admin (NS Flush) 2 ml UNSCH PRN IV FLUSH 12/02/16 15:00 (NS Flush) 2 ml BID IV FLUSH 12/02/16 21:00 12/10/16 19:59 (Tylenol) 650 mg Q4H PRN PO 12/02/16 15:00 12/04/16 00:50 (Zofran Inj) 4 mg Q6H PRN IVP 12/02/16 15:00 (Restoril) 15 mg HS PRN PO 12/02/16 15:00 (Narcan Inj) 0.4 mg UNSCH PRN IV PUSH 12/02/16 15:00 (Milk Of Magnesia Liq) 30 ml Q12H PRN PO 12/02/16 15:00 (Cosopt 2-0.5% Opth Soln) 1 drop BID EACH EYE 12/02/16 21:00 12/10/16 19:59 (Xalatan 0.005% Opth Soln) 1 drop HS EACH EYE 12/02/16 21:00 12/10/16 19:59 (Dificid) 200 mg BID PO 12/04/16 13:00 12/14/16 12:59 12/10/16 19:58 (VANCOMYCIN for oral use only) 125 mg QID PO 12/04/16 13:00 12/10/16 19:58 ([place] 5-325 Mg) 1 tab Q4H PRN PO 12/04/16 14:00 12/10/16 17:55 (Megace Liq) 200 mg BID PO 12/04/16 15:30 12/10/16 09:00 (KCl) 20 meq BID PO 12/05/16 21:00 12/10/16 19:58 (Dilaudid Pf Inj) 1 mg Q3H PRN IV PUSH 12/07/16 15:15 12/07/16 21:20 Objective Vital Signs Date Time Temp Pulse Resp B/P (MAP) Pulse Ox O2 Delivery O2 Flow Rate FiO2 12/11/16 04:00 97.6 90 17 141/80 (100) 97 12/11/16 00:00 98.0 93 17 125/82 (96) 98 12/10/16 20:00 97.6 83 17 122/70 (87) 95 12/10/16 16:00 98.9 83 16 126/72 (90) 98 12/10/16 12:00 98.5 61 16 126/69 (88) 98 I/O 12/10/16 12/10/16 12/10/16 12/11/16 12/11/16 12/11/16 07:00 15:00 23:00 07:00 15:00 23:00 Intake Total 564 ml 2400 ml Balance 564 ml 2400 ml Intake Oral 2400 ml IV Total 564 ml # Voids 11 2 # Bowel Movements 9 Cardiovascular: Regular rate and rhythm without murmurs Lungs: Clear to auscultation Abdomen: Soft, nontender, nondistended with bowel sounds present, no masses, no HSM Extremities reveal no appreciable edema Result Diagram: 12/08/16 0445 12/11/16 0436 Assessment and Plan Problem List: (1) C. difficile colitis ICD Codes: A04.7 - Enterocolitis due to Clostridium difficile Status: Acute Plan: Day #8 oral vancomycin and Dificid. Discussed disposition with patient. He is concerned about the abdominal cramping and increased diarrhea yesterday. We decided he would eat breakfast and see how he feels. I'll touch base with him around lunchtime and if he's feeling okay, can discharge home. I have already sent prescriptions for the vancomycin, megestrol and Dificid to [facility]. His will pick them up this morning. We'll provide him with a small prescription for hydrocodone to use as needed for the abdominal cramping pain. (2) Hypokalemia ICD Codes: E87.6 - Hypokalemia Status: Resolved Plan: Corrected. Continue with oral potassium supplement. Recheck potassium level in the morning (3) Rectal cancer ICD Codes: C20 - Malignant neoplasm of rectum Status: Chronic Plan: Xeloda on hold. Reviewed Dr. Lemons' note. Further treatment per his orders. Discharge Planning Possible discharge home later today Rober Avila MD Dec 11, 2016 08:42
[2016-12-11] MEDS: VANCOMYCIN 500 MG VIAL (FOR ORAL USE ONLY) PO SCH ×4 (08:53→22:06)
[2016-12-11] MEDS: FIDAXOMICIN 200 MG TAB PO SCH ×2 (08:53→22:04)
[2016-12-11] MEDS: POTASSIUM CHLORIDE 10 MEQ CAP PO SCH ×2 (08:53→22:05)
[2016-12-11] MEDS: DORZOLAMIDE/TIMOLOL OPTH SOLN 10 ML BTL EACH EYE SCH ×2 (08:54→22:07)
[2016-12-11] MEDS: SODIUM CHLORIDE 0.9% FLUSH 10 ML FLUSH IV FLUSH SCH ×2 (08:54→21:00)
[2016-12-11 08:56] VITALS: BP 108/73; PULSE 67; RESP 16; TEMP 97.6; O2SAT 97
[2016-12-11] MEDS: MEGESTROL ACETATE SUSP 400 MG/10 ML CUP PO SCH ×2 (08:57→22:05)
[2016-12-11 12:00] VITALS: BP 111/60; PULSE 77; RESP 16; TEMP 98.6; O2SAT 98
[2016-12-11 16:00] VITALS: BP 123/70; PULSE 94; RESP 16; TEMP 98.5; O2SAT 97
[2016-12-11] MEDS: ACETAMINOPHEN/HYDROcodone 325 MG/5 MG TAB PO PRN (16:51)
[2016-12-11 20:00] VITALS: BP 137/73; PULSE 78; RESP 17; TEMP 98; O2SAT 97
[2016-12-11] MEDS: LATANOPROST 0.005% OPHT SOLN 2.5 ML BTL EACH EYE SCH (22:07)
[2016-12-12] VITALS: BP 117/68; PULSE 87; RESP 16; TEMP 98.1; O2SAT 96
[2016-12-12 04:00] VITALS: BP 122/72; PULSE 96; RESP 17; TEMP 98; O2SAT 96
[2016-12-12 06:05] LABS: BICARBONATE 23.7 MEQ/L (21.0-32.0); POTASSIUM 3.3 MEQ/L (3.5-5.1)
[2016-12-12 08:00] VITALS: BP 130/85; PULSE 75; RESP 18; TEMP 98; O2SAT 97
[2016-12-12] MEDS: VANCOMYCIN 500 MG VIAL (FOR ORAL USE ONLY) PO SCH ×2 (08:41→13:16)
[2016-12-12] MEDS: MEGESTROL ACETATE SUSP 400 MG/10 ML CUP PO SCH (08:41)
[2016-12-12] MEDS: FIDAXOMICIN 200 MG TAB PO SCH (08:41)
[2016-12-12] MEDS: DORZOLAMIDE/TIMOLOL OPTH SOLN 10 ML BTL EACH EYE SCH (08:41)
[2016-12-12] MEDS: POTASSIUM CHLORIDE 10 MEQ CAP PO SCH (08:41)
[2016-12-12] MEDS: SODIUM CHLORIDE 0.9% FLUSH 10 ML FLUSH IV FLUSH SCH (08:42)
[2016-12-12 12:00] VITALS: BP 100/58; PULSE 78; RESP 18; TEMP 98.2; O2SAT 97
[2016-12-12] MEDS ORDERED: HYDR-3516 PO (12:24)
[2016-12-12] MEDS ORDERED: MEGE40SU PO (12:24)
[2016-12-12] MEDS ORDERED: VANC500I3 PO (12:24)
[2016-12-12] MEDS ORDERED: KLOR25PO2 PO (12:24)
[2016-12-12] MEDS ORDERED: DIFI200T PO (12:24)
--- NOTE | 2016-12-12 12:24 | HHI.PR ---
Subjective Remarks Patient reports that he is having less stools and there is more solid component to the stools. Very little abdominal cramping overnight. Appetite is good. Potassium level is low this morning. Patient receiving potassium chloride 20 mEq twice a day. Current Medications Medications (Trade) Dose Ordered Sig/Nora Route Start Time Stop Time Status Last Admin (NS Flush) 2 ml UNSCH PRN IV FLUSH 12/02/16 15:00 (NS Flush) 2 ml BID IV FLUSH 12/02/16 21:00 12/12/16 08:42 (Tylenol) 650 mg Q4H PRN PO 12/02/16 15:00 12/04/16 00:50 (Zofran Inj) 4 mg Q6H PRN IVP 12/02/16 15:00 (Restoril) 15 mg HS PRN PO 12/02/16 15:00 (Narcan Inj) 0.4 mg UNSCH PRN IV PUSH 12/02/16 15:00 (Milk Of Magnesia Liq) 30 ml Q12H PRN PO 12/02/16 15:00 (Cosopt 2-0.5% Opth Soln) 1 drop BID EACH EYE 12/02/16 21:00 12/12/16 08:41 (Xalatan 0.005% Opth Soln) 1 drop HS EACH EYE 12/02/16 21:00 12/11/16 22:07 (Dificid) 200 mg BID PO 12/04/16 13:00 12/14/16 12:59 12/12/16 08:41 (VANCOMYCIN for oral use only) 125 mg QID PO 12/04/16 13:00 12/12/16 08:41 ([place] 5-325 Mg) 1 tab Q4H PRN PO 12/04/16 14:00 12/11/16 16:51 (Megace Liq) 200 mg BID PO 12/04/16 15:30 12/12/16 08:41 (KCl) 20 meq BID PO 12/05/16 21:00 12/12/16 08:41 (Dilaudid Pf Inj) 1 mg Q3H PRN IV PUSH 12/07/16 15:15 12/07/16 21:20 Objective Vital Signs Date Time Temp Pulse Resp B/P (MAP) Pulse Ox O2 Delivery O2 Flow Rate FiO2 12/12/16 12:00 98.2 78 18 100/58 (72) 97 12/12/16 08:00 98.0 75 18 130/85 (100) 97 12/12/16 04:00 98.0 96 17 122/72 (89) 96 12/12/16 00:00 98.1 87 16 117/68 (84) 96 12/11/16 20:00 98.0 78 17 137/73 (94) 97 12/11/16 16:00 98.5 94 16 123/70 (87) 97 I/O 12/11/16 12/11/16 12/11/16 12/12/16 12/12/16 12/12/16 07:00 15:00 23:00 07:00 15:00 23:00 Intake Total 1220 ml 240 ml Balance 1220 ml 240 ml Intake Oral 1220 ml 240 ml # Voids 2 11 3 # Bowel Movements 5 2 Abdomen is soft, nontender nondistended with bowel sounds present Result Diagram: 12/08/16 0445 12/12/16 0430 Assessment and Plan Problem List: (1) C. difficile colitis ICD Codes: A04.7 - Enterocolitis due to Clostridium difficile Status: Acute Plan: Day #9 oral vancomycin and Dificid. Patient will be discharged home today with close outpatient follow-up. He will complete 14 days of oral vancomycin and Dificid. Prescriptions were sent to [facility]. The patient also will continue with Megace which was also picked up today by the patient's at [facility]. (2) Hypokalemia ICD Codes: E87.6 - Hypokalemia Status: Resolved Plan: The patient's potassium level is lower today. Will continue potassium supple as an outpatient and check outpatient laboratory studies including potassium level on December 15 in the undersigned physician's office (3) Rectal cancer ICD Codes: C20 - Malignant neoplasm of rectum Status: Chronic Plan: Xeloda on hold. Patient to follow-up with Dr. Lemons on an outpatient basis Discharge Planning Home today Rober Avila MD Dec 12, 2016 12:24
--- NOTE | 2016-12-12 12:32 | HHI.DS ---
Discharge Summary Admission Date Dec 03, 2016 at 08:30 Discharge Date: Dec 12, 2016 Admitting Diagnosis Nausea, vomiting, dehydration, C. difficile colitis (1) C. difficile colitis Diagnosis: Principal ICD Codes: A04.7 - Enterocolitis due to Clostridium difficile Status: Acute (2) Hypokalemia Diagnosis: Secondary ICD Codes: E87.6 - Hypokalemia Status: Acute (3) Rectal cancer Diagnosis: Secondary ICD Codes: C20 - Malignant neoplasm of rectum Status: Chronic Brief History This 76-year-old white male was diagnosed with rectal cancer with the last several months. He was started on chemotherapy as adjuvant therapy to subsequent radiation therapy and surgery. The patient was receiving oral Xeloda. He had a greatly diminished appetite with significant weight loss. Patient had lost over 40 pounds since the diagnosis. For a week prior to admission, he was having severe diarrhea which was watery and extremely frequent. His appetite was nearly nonexistent. He became progressively weaker. At that time, it was felt that the patient required inpatient evaluation of the weakness, dehydration and diarrhea. The patient was admitted to this facility for further evaluation and treatment CBC/BMP: 12/08/16 0445 12/12/16 0430 Significant Findings Laboratory Tests Test 12/10/16 05:40 12/11/16 04:36 12/12/16 04:30 Blood Urea Nitrogen 5 MG/DL (7-18) Creatinine 0.48 MG/DL (0.60-1.30) 0.41 MG/DL (0.60-1.30) 0.36 MG/DL (0.60-1.30) Calcium Level 8.0 MG/DL (8.5-10.1) 7.9 MG/DL (8.5-10.1) 7.9 MG/DL (8.5-10.1) Chloride Level 112 MEQ/L (98-107) 110 MEQ/L (98-107) 111 MEQ/L (98-107) Potassium Level 3.3 MEQ/L (3.5-5.1) Hospital Course Upon admission, the patient was found to have dehydration and hypokalemia. He received IV fluids and IV potassium supplementation. He continued to have frequent loose stools. Stool studies were positive for C. difficile toxin. The patient was initiated on metronidazole. Infectious disease was consult treated and the patient was changed to oral vancomycin and Dificid. The patient continued to have frequent watery stools. His appetite remained poor. He was placed on Megace as an appetite stimulant which was quite efficacious. His appetite improved significantly. The patient was continued on the medications for the C. difficile colitis and IV fluids until the point where it was felt he could maintain adequate fluid status with oral intake only. On December 07, 2016 the patient had severe abdominal pain which was worse than he had had previously. Abdominal x-ray revealed dilated loops of small bowel consistent with the enterocolitis. A CT scan of the abdomen and pelvis without contrast revealed a 2 mm kidney stone in the bladder which was ultimately felt to be the cause of the patient's abdominal pain. The pain improved after several hours. The patient did receive IV Dilaudid for pain. A few hours later, the patient feels that he passed a small kidney stone in his urine. He had no severe abdominal pain since that event. He continued to have on-and-off cramping abdominal pain for which he would occasionally take hydrocodone APAP. On the day discharge, the patient has strong desire to be discharged home. He stated that his stools were now semisolid with a lot gas. The frequency was decreasing. He had no abdominal pain. His appetite was good. He was ambulating around the room independently. His potassium level had decreased to 3.3. He was on potassium chloride ER 20 mg once twice a day. It was felt that the patient continued continue with oral potassium supplementation on outpatient basis. During the hospitalization patient was seen by Dr. Lemons, his oncologist who discontinued the Xeloda. His plan was to resume treatment for the rectal cancer after the C. difficile colitis was resolved. He would follow up with patient as an outpatient. Disposition: The patient was discharged home in good condition. His diet was as tolerated. He had no dietary restrictions. Activity was as tolerated. His medications are listed on the medication reconciliation sheet. His potassium supplement was changed to potassium chloride effervescent 25 Meq 1 packet in liquid 3 times a day. The patient would have outpatient lab work at the undersigned physician's office on December 15, 2016. He will follow-up with the undersigned physician in one week after discharge. He will follow-up with Dr. Lemons in 1-2 weeks. He was given instructions to notify the undersigned physician for any recurrent severe abdominal pain, nausea, vomiting or diminished appetite. 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 Pt Condition on Discharge: Good Discharge Disposition: Discharge Home Discharge Instructions DIET: Follow Instructions for: As Tolerated, No Restrictions Activities you can perform: Regular-No Restrictions Rober Avila MD Dec 12, 2016 12:32
== END 2016-12-12 14:27 | disposition home or self-care (01) | DRG 372 ==
LOC: HOCA 14:28 → OBSVTOIN 12-03 08:30
PROVIDERS: ADMIT Family Medicine; ATTEND Family Medicine
DX: A04.72 Enterocolitis due to Clostridium difficile, not specified as recurrent (principal); C18.2 Malignant neoplasm of ascending colon; C20 Malignant neoplasm of rectum; E86.0 Dehydration; E88.09 Other disorders of plasma-protein metabolism, not elsewhere classified; E87.6 Hypokalemia; H40.9 Unspecified glaucoma; M19.90 Unspecified osteoarthritis, unspecified site; K64.9 Unspecified hemorrhoids; N21.0 Calculus in bladder; R63.4 Abnormal weight loss; Z87.891 Personal history of nicotine dependence
CPT/HCPCS: 71010; 74020; 74176; 80048; 80053; 81001; 83735; 84132; 84403; 84410; 85007; 85025; 85027; 87040; 87493; 87506; 93005; J1170; J3480; J7030